=== PATIENT | male | born 1945 | race Caucasian/White ===

== ENCOUNTER 2022-04-16 18:37 | Emergency (ER) | payer OTHER, MEDICARE, SELFPAY ==
[2022-04-16 18:45] VITALS: BP 110/54; BP 143/63; PULSE 74; PULSE 80; RESP 18; TEMP 36.7; O2SAT 95; O2SAT 96; BMI 21.4
--- NOTE | 2022-04-16 18:48 | ED.NEUROSD ---
HPI - Neuro Symptoms/Deficit General Chief Complaint: Neuro Symptoms/Deficit <Michele Hernandez MD - Last Filed: 04/16/22 21:10> Stated Complaint: tremors <Michele Hernandez MD - Last Filed: 04/16/22 21:10> Time Seen by Provider: 04/16/22 18:48 <Michele Hernandez MD - Last Filed: 04/16/22 21:10> Source: patient <Michele Hernandez MD - Last Filed: 04/16/22 21:10> Mode of arrival: EMS <Michele Hernandez MD - Last Filed: 04/16/22 21:10> Limitations: no limitations <Michele Hernandez MD - Last Filed: 04/16/22 21:10> History of Present Illness HPI Narrative: patient with increased tremors over the past few weeks. Not seen by a neurologist. His paper work states that he is on primidone for tremors and has a Neurologist by the name of Dr. Dinero. <Michele Hernandez MD - Last Filed: 04/16/22 21:10> Onset (ago): month(s) <Michele Heranndez MD - Last Filed: 04/16/22 21:10> Location: other (all extremities) <Michele Hernandez MD - Last Filed: 04/16/22 21:10> Associated symptoms: denies other symptoms <Michele Hernandez MD - Last Filed: 04/16/22 21:10> Related Data Home Medications: Home Medications Medication Instructions Recorded Confirmed apixaban 5 mg tablet (Eliquis) 1 tab PO BID 04/17/22 04/17/22 atenolol 25 mg tablet 1 tab PO DAILY 04/17/22 04/17/22 atorvastatin 80 mg tablet 1 tab PO DAILY 04/17/22 04/17/22 carbidopa 25 mg-levodopa 100 mg 1 tab PO TID 04/17/22 04/17/22 tablet gabapentin 300 mg capsule 1 cap PO TID 04/17/22 04/17/22 lisinopril 2.5 mg tablet 1 tab PO DAILY 04/17/22 04/17/22 multivitamin 1 tab PO DAILY 04/17/22 04/17/22 <Michele Hernandez MD - Last Filed: 04/16/22 21:10> Allergies/Adverse Reactions: Allergies Allergy/AdvReac Type Severity Reaction Status Date / Time Penicillins [PENICILLINS] Allergy Severe SWELLING Unverified 08/04/20 19:52 <Michele Hernandez MD - Last Filed: 04/16/22 21:10> Review of Systems Constitutional: Constitutional: Reports no additional constitutional complaints <Michele Hernandez MD - Last Filed: 04/16/22 21:10> Eyes: Eyes: Reports no additional eye complaints <Michele Hernandez MD - Last Filed: 04/16/22 21:10> ENT: Denies dizziness <Michele Hernandez MD - Last Filed: 04/16/22 21:10> Cardiovascular: Cardiovascular: Reports no additional cardiovascular complaints <Michele Hernandez MD - Last Filed: 04/16/22 21:10> Respiratory: Respiratory: Reports as per HPI <Michele Hernandez MD - Last Filed: 04/16/22 21:10> Gastrointestinal: Gastrointestinal: Reports no additional gastrointestinal complaints <Michele Hernandez MD - Last Filed: 04/16/22 21:10> Musculoskeletal: Musculoskeletal: Reports no additional musculoskeletal complaints <Michele Hernandez MD - Last Filed: 04/16/22 21:10> Integumentary/Breasts: Skin/Breast: Denies rash <Michele Hernandez MD - Last Filed: 04/16/22 21:10> Neurologic: Reports system reviewed and no additional complaints, except as documented, Denies dizziness and Denies Sensory deficit (Neuro) <Michele Hernandez MD - Last Filed: 04/16/22 21:10> Psychiatric: Psychiatric: Denies anxiety <Michele Hernandez MD - Last Filed: 04/16/22 21:10> [facility] Social History Social History: Social History Advance Directives: No Advance Directives Information Provided: No <Michele Hernandez MD - Last Filed: 04/16/22 21:10> Physical Exam Vital Signs: Vital Signs: Last Vital Signs Temp 98.6 F 04/17/22 06:13 Pulse 60 04/17/22 07:31 Resp 17 04/17/22 07:31 BP 129/68 04/17/22 07:31 Pulse Ox 98 04/17/22 07:31 BMI result Body Mass Index 21.4 <Michele Hernandez MD - Last Filed: 04/16/22 21:10> Vital Signs: Last Vital Signs Temp 98.6 F 04/17/22 06:13 Pulse 60 04/17/22 07:31 Resp 17 04/17/22 07:31 BP 129/68 04/17/22 07:31 Pulse Ox 98 04/17/22 07:31 BMI result Body Mass Index 21.4 <Anette Shannon MD - Last Filed: 04/16/22 22:39> Vital Signs: Last Vital Signs Temp 98.6 F 04/17/22 06:13 Pulse 60 04/17/22 07:31 Resp 17 04/17/22 07:31 BP 129/68 04/17/22 07:31 Pulse Ox 98 04/17/22 07:31 BMI result Body Mass Index 21.4 <Adela Arreaga DO - Last Filed: 04/17/22 09:43> Const: Other: thin frail elderly male <Michele Hernandez MD - Last Filed: 04/16/22 21:10> Orientation/consciousness: oriented to person and patient oriented x3 <Michele Hernandez MD - Last Filed: 04/16/22 21:10> Limitations: no limitations <Michele Hernandez MD - Last Filed: 04/16/22 21:10> HEENT: Head: Yes normal to inspection <Michele Hernandez MD - Last Filed: 04/16/22 21:10> Ears: external ears normal <Michele Hernandez MD - Last Filed: 04/16/22 21:10> General nose exam: Normal external nose present <Michele Hernandez MD - Last Filed: 04/16/22 21:10> Mouth: Normal oral and palatal mucosa present and oropharynx normal <Michele Hernandez MD - Last Filed: 04/16/22 21:10> Throat: Yes posterior oropharynx normal <Michele Hernandez MD - Last Filed: 04/16/22 21:10> Eyes: General: appearance normal, both eyes and all related structures <Michele Hernandez MD - Last Filed: 04/16/22 21:10> Neck: Other: supple <Michele Hernandez MD - Last Filed: 04/16/22 21:10> Neck: Yes normal visual inspection <Michele Hernandez MD - Last Filed: 04/16/22 21:10> Chest: Chest palpation & inspection: normal inspection of the chest <Michele Hernandez MD - Last Filed: 04/16/22 21:10> Resp: Auscultation: clear to auscultation bilaterally <Michele Hernandez MD - Last Filed: 04/16/22 21:10> Cardio: Jugular venous distension: no JVD <Michele Hernandez MD - Last Filed: 04/16/22 21:10> Rate: regular rate <Michele Hernandez MD - Last Filed: 04/16/22 21:10> Rhythm: regular rhythm <Michele Hernandez MD - Last Filed: 04/16/22 21:10> Heart sounds: S1 normal heart sound present and S2 normal heart sound present <Michele Hernandez MD - Last Filed: 04/16/22 21:10> GI: Inspection: Yes normal to inspection <Michele Hernandez MD - Last Filed: 04/16/22 21:10> Palpation (GI): Soft to palpation, nontender and No hepatosplenomegaly present <Michele Hernandez MD - Last Filed: 04/16/22 21:10> Auscultation: normal bowel sounds <Michele Hernandez MD - Last Filed: 04/16/22 21:10> : General: Yes no CVA tenderness <Michele Hernandez MD - Last Filed: 04/16/22 21:10> Back/Spine/Pelvis: Back: no CVA tenderness <Michele Hernandez MD - Last Filed: 04/16/22 21:10> Skin: General skin exam: no rashes or lesions noted <Michele Hernandez MD - Last Filed: 04/16/22 21:10> Neuro: Other: intention tremor of hands and head <Michele Hernandez MD - Last Filed: 04/16/22 21:10> General: oriented to person and patient oriented x3 <Michele Hernandez MD - Last Filed: 04/16/22 21:10> Cranial nerves: Yes CN's II-XII intact bilaterally <Michele Hernandez MD - Last Filed: 04/16/22 21:10> Motor exam (neuro): 5/5 motor strength present throughout <Michele Hernandez MD - Last Filed: 04/16/22 21:10> Sensory Exam: No Sensory deficit (Neuro) <Michele Hernandez MD - Last Filed: 04/16/22 21:10> Extrem: General: Yes normal to inspection <Michele Hernandez MD - Last Filed: 04/16/22 21:10> Psych: Appearance: grossly normal <Michele Hernandez MD - Last Filed: 04/16/22 21:10> Course Course Course Narrative: Physician observation ended at 942am. Patient seen and cleared by PT/CM. steady gait. he is COVID + no hypoxia not toxic stable for DC at this time with VNA per PT/CM. Plan is to follow up as outpatient. VS stable. Disposition is for home. <Adela Arreaga DO - Last Filed: 04/17/22 09:43> Reevaluation(s) Reevaluation #1: patient with chronic renal insufficiency otherwise labs normal, awaiting UA, will need case management and social insurance specialist to discuss safety and needs <Michele Hernandez MD - Last Filed: 04/16/22 21:10> Time: 20:31 <Michele Hernandez MD - Last Filed: 04/16/22 21:10> Reevaluation #2: Patient placed in physician observation because the patient needed more time for evaluation by case management for possible placement. At the time observation was started the patient's vital signs were stable, patient is alert and oriented, neuro: Nonfocal, CV RRR, lungs clear <Anette Shannon MD - Last Filed: 04/16/22 22:39> Time: 22:38 <Anette Shannon MD - Last Filed: 04/16/22 22:39> MDM - Neuro Symptoms/Deficit Lab Data Result diagrams: : 04/16/22 19:12 04/16/22 19:12 <Michele Hernandez MD - Last Filed: 04/16/22 21:10> Labs: Lab Results 04/16/22 04/16/22 04/16/22 Range/Units 19:12 19:12 22:49 WBC 6.5 (4.8-10.8) X10*3/uL RBC 4.14 L (4.60-5.80) X10*6/uL Hgb 13.4 L (14.0-18.0) g/dl Hct 40.3 L (42.0-52.0) % MCV 97.3 (80.0-98.0) fL MCH 32.4 (27.0-33.0) pg MCHC 33.3 (31.0-36.0) g/dl RDW 13.0 (11.0-16.0) % Plt Count 195 (160-400) X10*3/uL MPV 9.9 (9.4-12.4) fL Immature Gran % (Auto) 0.2 (0.0-0.4) % Neut % (Auto) 59.7 (45-73) % Lymph % (Auto) 27.9 (20-40) % [place] % (Auto) 10.5 (2-11) % Eos % (Auto) 1.4 (0-4) % Baso % (Auto) 0.3 (0-2) % Lymph # (Auto) 1.8 (1.2-4.9) X10*3/uL [place] # (Auto) 0.7 (0.1-1.2) X10*3/uL Eos # (Auto) 0.1 (0.0-0.4) X10*3/uL Baso # (Auto) 0.0 (0.0-0.2) X10*3/uL Abs Immat Gran (auto) 0.01 (0.00-0.03) X10*3/uL Absolute Neuts (auto) 3.9 (2.0-8.3) x10*3/uL Absolute Nucleated RBC 0.000 (0.0-0.012) X10*3/uL Nucleated RBC % (auto) 0.0 (0.0-0.2) /100WBC Sodium 133 L (135-145) mmol/L Potassium 5.1 (3.3-5.1) mmol/L Chloride 104 (96-108) mmol/L Carbon Dioxide 20 L (22-29) mmol/L Anion Gap 14 (12-20) BUN 16 (9-16) mg/dL Creatinine 1.54 H (0.5-1.4) mg/dL Estim Creat Clear Calc 36.3 Estimated GFR 44 Random Glucose 89 (60-115) mg/dL Calcium 9.3 (8.4-10.2) mg/dL Total Bilirubin 0.5 (0.0-1.0) mg/dL AST 21 (5-37) U/L ALT 19 (0-40) U/L Alkaline Phosphatase 78 (39-117) U/L Total Protein 6.3 L (6.5-8.0) g/dL Albumin 3.8 (3.5-5.0) g/dL Urine Color YELLOW Urine Appearance CLEAR Urine pH 6.0 (5.0-8.0) Ur Specific [place] 1.020 (1.005-1.025) Urine Protein TRACE (NEG-TRACE) MG/DL Urine Glucose (UA) NEG (NEG) MG/DL Urine Ketones NEG (NEG) MG/DL Urine Blood NEG (NEG) Urine Nitrite NEG (NEG) Ur Leukocyte Esterase NEG (NEG) COVID-19 (EDITH) (Negative) COVID-19 Clin Com 04/17/22 Range/Units 02:39 WBC (4.8-10.8) X10*3/uL RBC (4.60-5.80) X10*6/uL Hgb (14.0-18.0) g/dl Hct (42.0-52.0) % MCV (80.0-98.0) fL MCH (27.0-33.0) pg MCHC (31.0-36.0) g/dl RDW (11.0-16.0) % Plt Count (160-400) X10*3/uL MPV (9.4-12.4) fL Immature Gran % (Auto) (0.0-0.4) % Neut % (Auto) (45-73) % Lymph % (Auto) (20-40) % [place] % (Auto) (2-11) % Eos % (Auto) (0-4) % Baso % (Auto) (0-2) % Lymph # (Auto) (1.2-4.9) X10*3/uL [place] # (Auto) (0.1-1.2) X10*3/uL Eos # (Auto) (0.0-0.4) X10*3/uL Baso # (Auto) (0.0-0.2) X10*3/uL Abs Immat Gran (auto) (0.00-0.03) X10*3/uL Absolute Neuts (auto) (2.0-8.3) x10*3/uL Absolute Nucleated RBC (0.0-0.012) X10*3/uL Nucleated RBC % (auto) (0.0-0.2) /100WBC Sodium (135-145) mmol/L Potassium (3.3-5.1) mmol/L Chloride (96-108) mmol/L Carbon Dioxide (22-29) mmol/L Anion Gap (12-20) BUN (9-16) mg/dL Creatinine (0.5-1.4) mg/dL Estim Creat Clear Calc Estimated GFR Random Glucose (60-115) mg/dL Calcium (8.4-10.2) mg/dL Total Bilirubin (0.0-1.0) mg/dL AST (5-37) U/L ALT (0-40) U/L Alkaline Phosphatase (39-117) U/L Total Protein (6.5-8.0) g/dL Albumin (3.5-5.0) g/dL Urine Color Urine Appearance Urine pH (5.0-8.0) Ur Specific [place] (1.005-1.025) Urine Protein (NEG-TRACE) MG/DL Urine Glucose (UA) (NEG) MG/DL Urine Ketones (NEG) MG/DL Urine Blood (NEG) Urine Nitrite (NEG) Ur Leukocyte Esterase (NEG) COVID-19 (EDITH) Positive A (Negative) COVID-19 Clin Com See Note <Michele Hernandez MD - Last Filed: 04/16/22 21:10> Lab Results 04/16/22 04/16/22 04/16/22 Range/Units 19:12 19:12 22:49 WBC 6.5 (4.8-10.8) X10*3/uL RBC 4.14 L (4.60-5.80) X10*6/uL Hgb 13.4 L (14.0-18.0) g/dl Hct 40.3 L (42.0-52.0) % MCV 97.3 (80.0-98.0) fL MCH 32.4 (27.0-33.0) pg MCHC 33.3 (31.0-36.0) g/dl RDW 13.0 (11.0-16.0) % Plt Count 195 (160-400) X10*3/uL MPV 9.9 (9.4-12.4) fL Immature Gran % (Auto) 0.2 (0.0-0.4) % Neut % (Auto) 59.7 (45-73) % Lymph % (Auto) 27.9 (20-40) % [place] % (Auto) 10.5 (2-11) % Eos % (Auto) 1.4 (0-4) % Baso % (Auto) 0.3 (0-2) % Lymph # (Auto) 1.8 (1.2-4.9) X10*3/uL [place] # (Auto) 0.7 (0.1-1.2) X10*3/uL Eos # (Auto) 0.1 (0.0-0.4) X10*3/uL Baso # (Auto) 0.0 (0.0-0.2) X10*3/uL Abs Immat Gran (auto) 0.01 (0.00-0.03) X10*3/uL Absolute Neuts (auto) 3.9 (2.0-8.3) x10*3/uL Absolute Nucleated RBC 0.000 (0.0-0.012) X10*3/uL Nucleated RBC % (auto) 0.0 (0.0-0.2) /100WBC Sodium 133 L (135-145) mmol/L Potassium 5.1 (3.3-5.1) mmol/L Chloride 104 (96-108) mmol/L Carbon Dioxide 20 L (22-29) mmol/L Anion Gap 14 (12-20) BUN 16 (9-16) mg/dL Creatinine 1.54 H (0.5-1.4) mg/dL Estim Creat Clear Calc 36.3 Estimated GFR 44 Random Glucose 89 (60-115) mg/dL Calcium 9.3 (8.4-10.2) mg/dL Total Bilirubin 0.5 (0.0-1.0) mg/dL AST 21 (5-37) U/L ALT 19 (0-40) U/L Alkaline Phosphatase 78 (39-117) U/L Total Protein 6.3 L (6.5-8.0) g/dL Albumin 3.8 (3.5-5.0) g/dL Urine Color YELLOW Urine Appearance CLEAR Urine pH 6.0 (5.0-8.0) Ur Specific [place] 1.020 (1.005-1.025) Urine Protein TRACE (NEG-TRACE) MG/DL Urine Glucose (UA) NEG (NEG) MG/DL Urine Ketones NEG (NEG) MG/DL Urine Blood NEG (NEG) Urine Nitrite NEG (NEG) Ur Leukocyte Esterase NEG (NEG) COVID-19 (EDITH) (Negative) COVID-19 Clin Com 04/17/22 Range/Units 02:39 WBC (4.8-10.8) X10*3/uL RBC (4.60-5.80) X10*6/uL Hgb (14.0-18.0) g/dl Hct (42.0-52.0) % MCV (80.0-98.0) fL MCH (27.0-33.0) pg MCHC (31.0-36.0) g/dl RDW (11.0-16.0) % Plt Count (160-400) X10*3/uL MPV (9.4-12.4) fL Immature Gran % (Auto) (0.0-0.4) % Neut % (Auto) (45-73) % Lymph % (Auto) (20-40) % [place] % (Auto) (2-11) % Eos % (Auto) (0-4) % Baso % (Auto) (0-2) % Lymph # (Auto) (1.2-4.9) X10*3/uL [place] # (Auto) (0.1-1.2) X10*3/uL Eos # (Auto) (0.0-0.4) X10*3/uL Baso # (Auto) (0.0-0.2) X10*3/uL Abs Immat Gran (auto) (0.00-0.03) X10*3/uL Absolute Neuts (auto) (2.0-8.3) x10*3/uL Absolute Nucleated RBC (0.0-0.012) X10*3/uL Nucleated RBC % (auto) (0.0-0.2) /100WBC Sodium (135-145) mmol/L Potassium (3.3-5.1) mmol/L Chloride (96-108) mmol/L Carbon Dioxide (22-29) mmol/L Anion Gap (12-20) BUN (9-16) mg/dL Creatinine (0.5-1.4) mg/dL Estim Creat Clear Calc Estimated GFR Random Glucose (60-115) mg/dL Calcium (8.4-10.2) mg/dL Total Bilirubin (0.0-1.0) mg/dL AST (5-37) U/L ALT (0-40) U/L Alkaline Phosphatase (39-117) U/L Total Protein (6.5-8.0) g/dL Albumin (3.5-5.0) g/dL Urine Color Urine Appearance Urine pH (5.0-8.0) Ur Specific [place] (1.005-1.025) Urine Protein (NEG-TRACE) MG/DL Urine Glucose (UA) (NEG) MG/DL Urine Ketones (NEG) MG/DL Urine Blood (NEG) Urine Nitrite (NEG) Ur Leukocyte Esterase (NEG) COVID-19 (EDITH) Positive A (Negative) COVID-19 Clin Com See Note <Anette Shannon MD - Last Filed: 04/16/22 22:39> Lab Results 04/16/22 04/16/22 04/16/22 Range/Units 19:12 19:12 22:49 WBC 6.5 (4.8-10.8) X10*3/uL RBC 4.14 L (4.60-5.80) X10*6/uL Hgb 13.4 L (14.0-18.0) g/dl Hct 40.3 L (42.0-52.0) % MCV 97.3 (80.0-98.0) fL MCH 32.4 (27.0-33.0) pg MCHC 33.3 (31.0-36.0) g/dl RDW 13.0 (11.0-16.0) % Plt Count 195 (160-400) X10*3/uL MPV 9.9 (9.4-12.4) fL Immature Gran % (Auto) 0.2 (0.0-0.4) % Neut % (Auto) 59.7 (45-73) % Lymph % (Auto) 27.9 (20-40) % [place] % (Auto) 10.5 (2-11) % Eos % (Auto) 1.4 (0-4) % Baso % (Auto) 0.3 (0-2) % Lymph # (Auto) 1.8 (1.2-4.9) X10*3/uL [place] # (Auto) 0.7 (0.1-1.2) X10*3/uL Eos # (Auto) 0.1 (0.0-0.4) X10*3/uL Baso # (Auto) 0.0 (0.0-0.2) X10*3/uL Abs Immat Gran (auto) 0.01 (0.00-0.03) X10*3/uL Absolute Neuts (auto) 3.9 (2.0-8.3) x10*3/uL Absolute Nucleated RBC 0.000 (0.0-0.012) X10*3/uL Nucleated RBC % (auto) 0.0 (0.0-0.2) /100WBC Sodium 133 L (135-145) mmol/L Potassium 5.1 (3.3-5.1) mmol/L Chloride 104 (96-108) mmol/L Carbon Dioxide 20 L (22-29) mmol/L Anion Gap 14 (12-20) BUN 16 (9-16) mg/dL Creatinine 1.54 H (0.5-1.4) mg/dL Estim Creat Clear Calc 36.3 Estimated GFR 44 Random Glucose 89 (60-115) mg/dL Calcium 9.3 (8.4-10.2) mg/dL Total Bilirubin 0.5 (0.0-1.0) mg/dL AST 21 (5-37) U/L ALT 19 (0-40) U/L Alkaline Phosphatase 78 (39-117) U/L Total Protein 6.3 L (6.5-8.0) g/dL Albumin 3.8 (3.5-5.0) g/dL Urine Color YELLOW Urine Appearance CLEAR Urine pH 6.0 (5.0-8.0) Ur Specific [place] 1.020 (1.005-1.025) Urine Protein TRACE (NEG-TRACE) MG/DL Urine Glucose (UA) NEG (NEG) MG/DL Urine Ketones NEG (NEG) MG/DL Urine Blood NEG (NEG) Urine Nitrite NEG (NEG) Ur Leukocyte Esterase NEG (NEG) COVID-19 (EDITH) (Negative) COVID-19 Clin Com 04/17/22 Range/Units 02:39 WBC (4.8-10.8) X10*3/uL RBC (4.60-5.80) X10*6/uL Hgb (14.0-18.0) g/dl Hct (42.0-52.0) % MCV (80.0-98.0) fL MCH (27.0-33.0) pg MCHC (31.0-36.0) g/dl RDW (11.0-16.0) % Plt Count (160-400) X10*3/uL MPV (9.4-12.4) fL Immature Gran % (Auto) (0.0-0.4) % Neut % (Auto) (45-73) % Lymph % (Auto) (20-40) % [place] % (Auto) (2-11) % Eos % (Auto) (0-4) % Baso % (Auto) (0-2) % Lymph # (Auto) (1.2-4.9) X10*3/uL [place] # (Auto) (0.1-1.2) X10*3/uL Eos # (Auto) (0.0-0.4) X10*3/uL Baso # (Auto) (0.0-0.2) X10*3/uL Abs Immat Gran (auto) (0.00-0.03) X10*3/uL Absolute Neuts (auto) (2.0-8.3) x10*3/uL Absolute Nucleated RBC (0.0-0.012) X10*3/uL Nucleated RBC % (auto) (0.0-0.2) /100WBC Sodium (135-145) mmol/L Potassium (3.3-5.1) mmol/L Chloride (96-108) mmol/L Carbon Dioxide (22-29) mmol/L Anion Gap (12-20) BUN (9-16) mg/dL Creatinine (0.5-1.4) mg/dL Estim Creat Clear Calc Estimated GFR Random Glucose (60-115) mg/dL Calcium (8.4-10.2) mg/dL Total Bilirubin (0.0-1.0) mg/dL AST (5-37) U/L ALT (0-40) U/L Alkaline Phosphatase (39-117) U/L Total Protein (6.5-8.0) g/dL Albumin (3.5-5.0) g/dL Urine Color Urine Appearance Urine pH (5.0-8.0) Ur Specific [place] (1.005-1.025) Urine Protein (NEG-TRACE) MG/DL Urine Glucose (UA) (NEG) MG/DL Urine Ketones (NEG) MG/DL Urine Blood (NEG) Urine Nitrite (NEG) Ur Leukocyte Esterase (NEG) COVID-19 (EDITH) Positive A (Negative) COVID-19 Clin Com See Note <Adela Arreaga DO - Last Filed: 04/17/22 09:43> Discharge Plan Discharge Clinical Impression: Tremor, COVID-19 <Michele Hernandez MD - Last Filed: 04/16/22 21:10> Patient Disposition: Home, Self-Care <Michele Hernandez MD - Last Filed: 04/16/22 21:10> Instructions: Tremors (ED), COVID-19 (Coronavirus Disease 2019) (ED) <Michele Hernandez MD - Last Filed: 04/16/22 21:10> Additional Instructions: return to ED for any worsening symptoms or concerns positive for COVID if you become so short of breath you cannot walk to your bathroom seek medical care follow up with your doctor and neurologist in regards to your tremor in the next week <Michele Hernandez MD - Last Filed: 04/16/22 21:10> Prescriptions: No Action multivitamin Tablet 1 tab PO DAILY 0RF atorvastatin 80 mg tablet 1 tab PO DAILY 0RF atenolol 25 mg tablet 1 tab PO DAILY 0RF gabapentin 300 mg capsule 1 cap PO TID 0RF carbidopa-levodopa 25-100 mg tablet 1 tab PO TID 0RF lisinopril 2.5 mg tablet 1 tab PO DAILY 0RF Eliquis 5 mg tablet 1 tab PO BID 0RF <Michele Hernandez MD - Last Filed: 04/16/22 21:10> Referrals: [facility] [Outside] (Agency will call you to arrange a visit. ) <Michele Hernandez MD - Last Filed: 04/16/22 21:10>
[2022-04-16 19:16] LABS: MANUAL DIFF FLAG NO
[2022-04-16 19:17] LABS: Basophils Percent Auto 0.3 % (0-2); Eosinophils Absolute Auto 0.1 X10*3/uL (0.0-0.4); Eosinophils Percent Auto 1.4 % (0-4); Hematocrit 40.3 % (42.0-52.0); Hemoglobin 13.4 g/dl (14.0-18.0); Imm Gran Abs Auto 0.01 X10*3/uL (0.00-0.03); Imm Gran Pct Auto 0.2 % (0.0-0.4); Lymphocytes Absolute Auto 1.8 X10*3/uL (1.2-4.9); Lymphocytes Percent Auto 27.9 % (20-40); Mean Corpuscular HGB Conc 33.3 g/dl (31.0-36.0); Mean Corpuscular Hemoglobin 32.4 pg (27.0-33.0); Mean Corpuscular Volume 97.3 fL (80.0-98.0); Mean Platelet Volume 9.9 fL (9.4-12.4); Monocytes Absolute Auto 0.7 X10*3/uL (0.1-1.2); Monocytes Percent Auto 10.5 % (2-11); Neutrophils Absolute Auto 3.9 x10*3/uL (2.0-8.3); Neutrophils Percent Auto 59.7 % (45-73); Platelet Count 195 X10*3/uL (160-400); Red Blood Count 4.14 X10*6/uL (4.60-5.80); White Blood Count 6.5 X10*3/uL (4.8-10.8)
[2022-04-16 19:36] LABS: Alanine Aminotransferase 19 U/L (0-40); Albumin Level 3.8 g/dL (3.5-5.0); Alkaline Phosphatase 78 U/L (39-117); Anion Gap 14 (12-20); Aspartate Amino Transferase 21 U/L (5-37); Bilirubin Total 0.5 mg/dL (0.0-1.0); Blood Urea Nitrogen 16 mg/dL (9-16); Calcium 9.3 mg/dL (8.4-10.2); Carbon Dioxide 20 mmol/L (22-29); Chloride 104 mmol/L (96-108); Creatinine Clr Calc Pharmacy 36.3; Estimated Glomerular Filt Rate 44; Glucose Random 89 mg/dL (60-115); Potassium 5.1 mmol/L (3.3-5.1); Sodium 133 mmol/L (135-145); Total Protein 6.3 g/dL (6.5-8.0)
[2022-04-16 21:57] VITALS: BP 143/63; PULSE 74; RESP 16; TEMP 36.7; O2SAT 95
[2022-04-16 23:02] LABS: Appearance Urine CLEAR; Color Urine YELLOW; Glucose Urine UA NEG (NEG); Leukocyte Esterase Urine NEG (NEG); Nitrite Urine NEG (NEG); Urine Blood NEG (NEG); Urine Ketones NEG (NEG); Urine Protein TRACE MG/DL (NEG-TRACE)
[2022-04-17] VITALS: BP 149/63; PULSE 54; RESP 16; TEMP 36.9; O2SAT 98
[2022-04-17 02:00] VITALS: BP 143/49; PULSE 48; RESP 16; TEMP 36.7; O2SAT 99
--- NOTE | 2022-04-17 02:43 | PC.NURSE ---
Patient is alert and oriented x3, he is able to make his needs known-patient denies pain/discomfort at present. BP 144/72, P 47-Dr. Shannon updated on BP and pulse readings-no new orders at this time.
[2022-04-17 02:53] LABS: COVID-19 Test Positive (Negative); IDNOW Serial# 16C4AD1C
--- NOTE | 2022-04-17 04:35 | PC.NURSE ---
Patient refused being straight cath-patient was able to void into urinal-urine specimen obtained, scanned, and sent to lab for processing.
--- NOTE | 2022-04-17 04:39 | PC.NURSE ---
Patient had a small BM-soft, brown stool.
[2022-04-17 06:13] VITALS: BP 157/65; PULSE 51; RESP 18; TEMP 37; O2SAT 97
[2022-04-17 07:29] VITALS: BP 129/68; PULSE 60; O2SAT 98
[2022-04-17 07:31] VITALS: BP 129/68; PULSE 60; RESP 17; O2SAT 98
--- NOTE | 2022-04-17 09:31 | MHC.CM.ED ---
Addendum entered by Angélica Christy 04/17/22 10:03: No HCP at [place] for this patient. Original Note: Received case management consult overnight. Patient came to the ER due to tremors. Work up essentially negative. Patient was found to be positive for Covid. Patient has a history of Parkinson's disease and sees a neurologist. Physical therapy eval completed. No therapies recommended at this time. Met with patient in regards to discharge planning. Patient lives with a roommate, uses a cane for mobility and had no services prior to coming to the ER. PCP verified. Patient received 3 Moderna vaccines. Patient would like VNA to be arranged and is agreeable to referral to [facility]. Referral made via [employer]. Patient has no transportation home. Due to being positive for Covid, BLS booked. [facility] with chart. Patient, Josesito CARBAJAL and Dr Arreaga aware. Continue to monitor for d/c needs.
== END 2022-04-17 10:07 | disposition home or self-care (01) ==
PROVIDERS: Emergency Provider Emergency Medicine; PCP Internal Medicine
DX: U07.1 COVID-19 (principal); R25.1 Tremor, unspecified; Z79.899 Other long term (current) drug therapy
CPT/HCPCS: 36415; 80053; 81003; 85025; 87635; 97162; 99284

== ENCOUNTER 2022-06-25 20:57 | Emergency (ER) | payer OTHER, SELFPAY ==
--- NOTE | ~2022-06-25 | CT_ITS ---
EXAMINATION: CT HEAD WITHOUT CONTRAST CLINICAL INFORMATION: Confusion COMPARISON: None TECHNIQUE: Imaging was performed from the skull base to vertex without intravenous administration of contrast. This CT examination was performed using dose optimization techniques as appropriate, variously including the following: *Automated exposure control *Adjustment of mA and/or kV according to patient size (this includes techniques or standardized protocols for targeted exams where dose is matched to indication/reason for exam; i.e. extremities or head) *Use of iterative reconstruction technique Total exam dose length product: 594 mGy-cm FINDINGS: No intra or extra-axial fluid collection, hemorrhage, or mass. No ventriculomegaly. No midline shift or herniation. Basal cisterns are patent. Cherry-white matter differentiation is maintained. No territorial encephalomalacia. Proportional prominence of the ventricles and sulcal spaces is consistent with mild volume loss. Confluent periventricular and deep white matter hypoattenuation is consistent with severe small vessel ischemic changes. No calvarial fracture or soft tissue abnormality. Mild mucosal thickening and hyperostosis of the sphenoid and visualized left maxillary sinuses. Mastoid air cells are normally aerated. CT/CT head/brain wo con IMPRESSION: 1. No acute intracranial pathology. 2. Mild cerebral atrophy and extensive confluent supratentorial white matter hypoattenuation, nonspecific though presumably secondary to chronic small vessel ischemia.
--- NOTE | ~2022-06-25 | XR_ITS ---
EXAMINATION: XR CHEST CLINICAL INFORMATION: Confusion COMPARISON: None TECHNIQUE: Frontal view of the chest was obtained. FINDINGS: Heart size normal. Patient status post median sternotomy with some fractured sternal sutures. There is no evidence of CHF. No infiltrates or effusions are seen. Chronic left shoulder fracture with nonunion. Surgical clips noted near the GE junction. XR/XR chest 1V IMPRESSION: No acute intrathoracic disease.
[2022-06-25 21:12] VITALS: BP 144/68; PULSE 50; O2SAT 98
--- NOTE | 2022-06-25 21:14 | PC.NURSE ---
Joseph (neighbor) [phone] able to transport pt home if called for discharge.
[2022-06-25 21:23] VITALS: BP 137/74; PULSE 44; RESP 16; TEMP 37.2; O2SAT 94; BMI 23.8
--- NOTE | 2022-06-25 21:27 | ECG_ITS ---
Test Reason : cp Blood Pressure : / mmHG Vent. Rate : 042 BPM Atrial Rate : 042 BPM P-R Int : 182 ms QRS Dur : 078 ms QT Int : 454 ms P-R-T Axes : 014 053 057 degrees QTc Int : 379 ms Marked sinus bradycardia Abnormal ECG No previous ECGs available Referred By: Adela Arreaga Electronically Signed By:SALMA KABA
--- NOTE | 2022-06-25 21:33 | ED.AMS ---
HPI - Altered Mental Status General Chief Complaint: Altered Mental Status Stated Complaint: confusion and not eating Time Seen by Provider: 06/25/22 21:23 Source: patient Mode of arrival: EMS Limitations: no limitations History of Present Illness HPI narrative: 77 yo male with hx of HTN, CAD s/p CABG comes from home stating he is disoriented but he can answer all questions in regards to orientation. He states he doesn't have fever, didn't fall, he hasn't had any issues such as coughing/problems urinating. He just feels off. No ETOH and recent changes in medications. He states a friend told him to come get checked out. He notes this has been happening all day MD complaint: confusion Onset (ago): day(s) (since this AM when he woke up) Timing confirmed by: other ( neighbor friend ) Severity: mild Consistency of symptoms: unknown Associated symptoms: denies other symptoms Related Data Allergies Allergy/AdvReac Type Severity Reaction Status Date / Time Penicillins Allergy Unknown Unknown Verified 06/25/22 21:24 Review of Systems Review of Systems: Constitutional : No Fever, No Chills, pos Fatigue, No Malaise ENT/Mouth : No sore throat, No Rhinorrhea Eyes: No Eye Pain, No Swelling, No Redness Cardiovascular : No Chest Pain, No SOB, No Dyspnea on Exertion, No Orthopnea, No Edema, No Palpitations Respiratory : No Cough, No Sputum, No Wheezing Gastrointestinal : No Nausea, No Vomiting, No Diarrhea, No Constipation, No abdominal Pain, No Hematochezia, No Melena Genitourinary : No Dysuria, No Urinary Frequency, No Hematuria, Musculoskeletal : No joint pain, No Myalgias, No Joint Swelling Skin : No Skin Lesions, No rash Neuro : No Weakness, No Numbness, No Dizziness, No Headache, pos confusion Psych : No Anxiety/Panic, No Depression Heme/Lymph: No Bruising, No Bleeding,No Lymphadenopathy Endocrine : No Polyuria, No Polydipsia All other systems reviewed and are negative [facility] Past Medical History Attestation statement: The following information was validated with the patient. Medical History (Updated 06/26/22 @ 01:20 by Adela Arreaga DO) Coronary artery disease HTN (hypertension) Surgical History (Updated 06/25/22 @ 21:33 by Adela Arreaga DO) Hx of CABG Social History Social History (Updated 06/25/22 @ 21:34 by Adela Arreaga DO) Alcohol intake: never Patient Tobacco Use Status: Current someday Tobacco user Tobacco use type: Cigar Advance Directives: No Advance Directives Information Provided: No Physical Exam ED Vital Signs: Vital Signs - 24 hr 06/25/22 21:23 06/25/22 23:41 Temperature 99 F 98.4 F Pulse Rate 44 L 450 H Respiratory Rate 16 20 Blood Pressure 137/74 174/60 H Pulse Oximetry 94 100 Oxygen Delivery Method Room Air Room Air BMI result Body Mass Index 23.8 Appearance: Alert. Oriented X3. No acute distress. Eyes: Pupils equal, round and reactive to light. ENT: Pharynx normal. Neck: Normal inspection. Neck supple. CVS: Normal heart rate and rhythm. Pulses normal. Chest wall: old sternotomy scar Respiratory: No respiratory distress. Breath sounds normal. Abdomen: Soft and non-tender. Skin: Skin warm and dry. Normal skin color. Normal skin turgor. Extremities: No lower extremity edema. No calf ttp Neuro: Oriented X 3. No motor deficit. No sensory deficit. Course Course Course Narrative: negative workup no signs of infection, after much discussion patient now notes he is stressed out and anxious he is alone recently as his roommate went ot stay with her boyfriend. He is not confused. At this time plan to DC home in AM patient states he is taking his medications, he feels safe for DC and doesn't want placement MDM - Altered Mental Status MDM Narrative Medical decision making narrative: 77 yo male with hx of HTN, CAD s/p CABG from home with c/o confusion though he is oriented and comes in without falls and fevers. At this time will need labs, EKG, CXR, UA for infection. CT head for ICH though no localizing symptoms. Dispo per results and findings. He is not alerted on arrival at this time. Lab Data Result diagrams: 06/25/22 22:32 06/25/22 22:32 Labs: Lab Results 06/25/22 06/25/22 06/25/22 Range/Units 22:32 22:32 22:32 WBC 7.1 (4.8-10.8) X10*3/uL RBC 3.49 L (4.60-5.80) X10*6/uL Hgb 11.5 L (14.0-18.0) g/dl Hct 34.3 L (42.0-52.0) % MCV 98.3 H (80.0-98.0) fL MCH 33.0 (27.0-33.0) pg MCHC 33.5 (31.0-36.0) g/dl RDW 13.4 (11.0-16.0) % Plt Count 148 L (160-400) X10*3/uL MPV 9.7 (9.4-12.4) fL Immature Gran % (Auto) 0.3 (0.0-0.4) % Neut % (Auto) 63.8 (45-73) % Lymph % (Auto) 24.6 (20-40) % [place] % (Auto) 9.3 (2-11) % Eos % (Auto) 1.7 (0-4) % Baso % (Auto) 0.3 (0-2) % Lymph # (Auto) 1.7 (1.2-4.9) X10*3/uL [place] # (Auto) 0.7 (0.1-1.2) X10*3/uL Eos # (Auto) 0.1 (0.0-0.4) X10*3/uL Baso # (Auto) 0.0 (0.0-0.2) X10*3/uL Abs Immat Gran (auto) 0.02 (0.00-0.03) X10*3/uL Absolute Neuts (auto) 4.5 (2.0-8.3) x10*3/uL Absolute Nucleated RBC 0.000 (0.0-0.012) X10*3/uL Nucleated RBC % (auto) 0.0 (0.0-0.2) /100WBC VBG pH (7.32-7.43) VBG pCO2 mmHg VBG pO2 mmHg VBG HCO3 (22-26) mmol/L VBG O2 Saturation % VBG Base Excess mmol/L Sodium 131 L (135-145) mmol/L Potassium 5.4 H (3.3-5.1) mmol/L Chloride 98 (96-108) mmol/L Carbon Dioxide 27 (22-29) mmol/L Anion Gap 11 L (12-20) BUN 15 (9-16) mg/dL Creatinine 1.41 H (0.5-1.4) mg/dL Estim Creat Clear Calc 41.7 Estimated GFR 49 Random Glucose 99 (60-115) mg/dL Lactic Acid 0.5 (0.5-2.0) mmol/L Calcium 8.4 (8.4-10.2) mg/dL Magnesium 2.1 (1.6-2.6) mg/dL Total Bilirubin 0.7 (0.0-1.0) mg/dL Direct Bilirubin 0.3 (0.0-0.5) mg/dL AST 23 (5-37) U/L ALT < 6 (0-40) U/L Alkaline Phosphatase 69 (39-117) U/L Ammonia (13-55) umol/L Troponin I High Sens (<3.5-35.0) ng/L Total Protein 5.6 L (6.5-8.0) g/dL Albumin 3.6 (3.5-5.0) g/dL Lipase 42 (8-78) U/L Urine Color Urine Appearance Urine pH (5.0-8.0) Ur Specific [place] (1.005-1.025) Urine Protein (NEG-TRACE) MG/DL Urine Glucose (UA) (NEG) MG/DL Urine Ketones (NEG) MG/DL Urine Blood (NEG) Urine Nitrite (NEG) Ur Leukocyte Esterase (NEG) Ethyl Alcohol mg/dL COVID-19 ([facility]) (Negative) COVID-19 Clin Com 06/25/22 06/25/22 06/25/22 Range/Units 22:32 22:32 22:32 WBC (4.8-10.8) X10*3/uL RBC (4.60-5.80) X10*6/uL Hgb (14.0-18.0) g/dl Hct (42.0-52.0) % MCV (80.0-98.0) fL MCH (27.0-33.0) pg MCHC (31.0-36.0) g/dl RDW (11.0-16.0) % Plt Count (160-400) X10*3/uL MPV (9.4-12.4) fL Immature Gran % (Auto) (0.0-0.4) % Neut % (Auto) (45-73) % Lymph % (Auto) (20-40) % [place] % (Auto) (2-11) % Eos % (Auto) (0-4) % Baso % (Auto) (0-2) % Lymph # (Auto) (1.2-4.9) X10*3/uL [place] # (Auto) (0.1-1.2) X10*3/uL Eos # (Auto) (0.0-0.4) X10*3/uL Baso # (Auto) (0.0-0.2) X10*3/uL Abs Immat Gran (auto) (0.00-0.03) X10*3/uL Absolute Neuts (auto) (2.0-8.3) x10*3/uL Absolute Nucleated RBC (0.0-0.012) X10*3/uL Nucleated RBC % (auto) (0.0-0.2) /100WBC VBG pH (7.32-7.43) VBG pCO2 mmHg VBG pO2 mmHg VBG HCO3 (22-26) mmol/L VBG O2 Saturation % VBG Base Excess mmol/L Sodium (135-145) mmol/L Potassium (3.3-5.1) mmol/L Chloride (96-108) mmol/L Carbon Dioxide (22-29) mmol/L Anion Gap (12-20) BUN (9-16) mg/dL Creatinine (0.5-1.4) mg/dL Estim Creat Clear Calc Estimated GFR Random Glucose (60-115) mg/dL Lactic Acid (0.5-2.0) mmol/L Calcium (8.4-10.2) mg/dL Magnesium (1.6-2.6) mg/dL Total Bilirubin (0.0-1.0) mg/dL Direct Bilirubin (0.0-0.5) mg/dL AST (5-37) U/L ALT (0-40) U/L Alkaline Phosphatase (39-117) U/L Ammonia 24 (13-55) umol/L Troponin I High Sens 5.7 (<3.5-35.0) ng/L Total Protein (6.5-8.0) g/dL Albumin (3.5-5.0) g/dL Lipase (8-78) U/L Urine Color Urine Appearance Urine pH (5.0-8.0) Ur Specific [place] (1.005-1.025) Urine Protein (NEG-TRACE) MG/DL Urine Glucose (UA) (NEG) MG/DL Urine Ketones (NEG) MG/DL Urine Blood (NEG) Urine Nitrite (NEG) Ur Leukocyte Esterase (NEG) Ethyl Alcohol mg/dL COVID-19 ([facility]) Negative (Negative) COVID-19 Clin Com See Note 06/25/22 06/25/22 06/26/22 Range/Units 22:32 22:35 00:56 WBC (4.8-10.8) X10*3/uL RBC (4.60-5.80) X10*6/uL Hgb (14.0-18.0) g/dl Hct (42.0-52.0) % MCV (80.0-98.0) fL MCH (27.0-33.0) pg MCHC (31.0-36.0) g/dl RDW (11.0-16.0) % Plt Count (160-400) X10*3/uL MPV (9.4-12.4) fL Immature Gran % (Auto) (0.0-0.4) % Neut % (Auto) (45-73) % Lymph % (Auto) (20-40) % [place] % (Auto) (2-11) % Eos % (Auto) (0-4) % Baso % (Auto) (0-2) % Lymph # (Auto) (1.2-4.9) X10*3/uL [place] # (Auto) (0.1-1.2) X10*3/uL Eos # (Auto) (0.0-0.4) X10*3/uL Baso # (Auto) (0.0-0.2) X10*3/uL Abs Immat Gran (auto) (0.00-0.03) X10*3/uL Absolute Neuts (auto) (2.0-8.3) x10*3/uL Absolute Nucleated RBC (0.0-0.012) X10*3/uL Nucleated RBC % (auto) (0.0-0.2) /100WBC VBG pH 7.40 (7.32-7.43) VBG pCO2 37 mmHg VBG pO2 123 mmHg VBG HCO3 23 (22-26) mmol/L VBG O2 Saturation 99.0 % VBG Base Excess -0.5 mmol/L Sodium (135-145) mmol/L Potassium (3.3-5.1) mmol/L Chloride (96-108) mmol/L Carbon Dioxide (22-29) mmol/L Anion Gap (12-20) BUN (9-16) mg/dL Creatinine (0.5-1.4) mg/dL Estim Creat Clear Calc Estimated GFR Random Glucose (60-115) mg/dL Lactic Acid (0.5-2.0) mmol/L Calcium (8.4-10.2) mg/dL Magnesium (1.6-2.6) mg/dL Total Bilirubin (0.0-1.0) mg/dL Direct Bilirubin (0.0-0.5) mg/dL AST (5-37) U/L ALT (0-40) U/L Alkaline Phosphatase (39-117) U/L Ammonia (13-55) umol/L Troponin I High Sens (<3.5-35.0) ng/L Total Protein (6.5-8.0) g/dL Albumin (3.5-5.0) g/dL Lipase (8-78) U/L Urine Color YELLOW Urine Appearance CLEAR Urine pH 7.0 (5.0-8.0) Ur Specific [place] 1.010 (1.005-1.025) Urine Protein NEG (NEG-TRACE) MG/DL Urine Glucose (UA) NEG (NEG) MG/DL Urine Ketones NEG (NEG) MG/DL Urine Blood NEG (NEG) Urine Nitrite NEG (NEG) Ur Leukocyte Esterase NEG (NEG) Ethyl Alcohol < 10 mg/dL COVID-19 ([facility]) (Negative) COVID-19 Clin Com ECG Data ECG #1: Attestation: I personally reviewed and interpreted this ECG as follows: ECG interpretation date: 06/25/22 ECG interpretation time: 21:45 Interpretation: Rate: 42 Rhythm: sinus bradycardia Straughn: normal Normal P waves. Normal ARISTIDES. Normal QRS complex. ST T wave : normal no STEa qTC: normal prior studies: none The study has been interpreted contemporaneously by me. . Discharge Plan Discharge Clinical Impression: Anxiety Patient Disposition: Home, Self-Care Instructions: Anxiety (ED) Additional Instructions: return to ED for any worsening symptoms or concerns negative labs, urine, chest xray, CT head please follow up with your doctor this week.
[2022-06-25 22:38] LABS: MANUAL DIFF FLAG NO
[2022-06-25 22:38] LABS: Venous Blood Gas Refer to POC result
[2022-06-25 22:40] LABS: VBG Base Excess -0.5 mmol/L; VBG HCO3 23 mmol/L (22-26); VBG pCO2 37 mmHg; VBG pO2 123 mmHg
[2022-06-25 22:42] LABS: Basophils Percent Auto 0.3 % (0-2); Eosinophils Absolute Auto 0.1 X10*3/uL (0.0-0.4); Eosinophils Percent Auto 1.7 % (0-4); Hematocrit 34.3 % (42.0-52.0); Hemoglobin 11.5 g/dl (14.0-18.0); Imm Gran Abs Auto 0.02 X10*3/uL (0.00-0.03); Imm Gran Pct Auto 0.3 % (0.0-0.4); Lymphocytes Absolute Auto 1.7 X10*3/uL (1.2-4.9); Lymphocytes Percent Auto 24.6 % (20-40); Mean Corpuscular HGB Conc 33.5 g/dl (31.0-36.0); Mean Corpuscular Volume 98.3 fL (80.0-98.0); Mean Platelet Volume 9.7 fL (9.4-12.4); Monocytes Absolute Auto 0.7 X10*3/uL (0.1-1.2); Monocytes Percent Auto 9.3 % (2-11); Neutrophils Absolute Auto 4.5 x10*3/uL (2.0-8.3); Neutrophils Percent Auto 63.8 % (45-73); Platelet Count 148 X10*3/uL (160-400); Red Blood Count 3.49 X10*6/uL (4.60-5.80); Red Cell Distribution Width 13.4 % (11.0-16.0); White Blood Count 7.1 X10*3/uL (4.8-10.8)
[2022-06-25 22:52] LABS: Lactic Acid 0.5 mmol/L (0.5-2.0)
[2022-06-25 22:54] LABS: COVID-19 Test Negative (Negative)
[2022-06-25 22:55] LABS: Ethanol < 10 mg/dL
[2022-06-25 23:00] LABS: Alanine Aminotransferase < 6 U/L (0-40); Albumin Level 3.6 g/dL (3.5-5.0); Alkaline Phosphatase 69 U/L (39-117); Anion Gap 11 (12-20); Aspartate Amino Transferase 23 U/L (5-37); Bilirubin Direct 0.3 mg/dL (0.0-0.5); Bilirubin Total 0.7 mg/dL (0.0-1.0); Blood Urea Nitrogen 15 mg/dL (9-16); Calcium 8.4 mg/dL (8.4-10.2); Carbon Dioxide 27 mmol/L (22-29); Chloride 98 mmol/L (96-108); Creatinine Clr Calc Pharmacy 41.7; Estimated Glomerular Filt Rate 49; Glucose Random 99 mg/dL (60-115); Lipase 42 U/L (8-78); Magnesium 2.1 mg/dL (1.6-2.6); Potassium 5.4 mmol/L (3.3-5.1); Sodium 131 mmol/L (135-145); Total Protein 5.6 g/dL (6.5-8.0)
[2022-06-25 23:04] LABS: Troponin-I High Sensitivity 5.7 ng/L (<3.5-35.0)
[2022-06-25 23:41] VITALS: BP 174/60; PULSE 450; RESP 20; TEMP 36.9; O2SAT 100
[2022-06-25 23:57] LABS: Ammonia 24 umol/L (13-55)
[2022-06-26] MEDS: 0.9 % Sodium Chloride 500 ML IV (00:31)
[2022-06-26 01:04] LABS: Appearance Urine CLEAR; Color Urine YELLOW; Glucose Urine UA NEG (NEG); Leukocyte Esterase Urine NEG (NEG); Nitrite Urine NEG (NEG); Urine Blood NEG (NEG); Urine Ketones NEG (NEG); Urine Protein NEG (NEG-TRACE)
[2022-06-26 02:24] VITALS: BP 157/56; PULSE 48; RESP 18; O2SAT 100
[2022-06-26 04:08] VITALS: PULSE 44; RESP 18; O2SAT 100
--- NOTE | 2022-06-26 05:51 | PC.NURSE ---
I assumed nursing care of Dillon on his arrival to bed 5. He states he came to the ED for evaluation of mild confusion, I just don't feel right. Since he arrived Dillon has been alert, oriented x 3, calm and cooperative. He makes eye contact with RN and is able to adequately verbalize his needs. He does seem mildly forgetful and requires occasional reminding. He denies pain. He denies SOB. No nausea or vomiting. Dillon continues to await MD dispo.
[2022-06-26 07:31] VITALS: BP 141/42; PULSE 48; RESP 20; TEMP 37.1; O2SAT 95
== END 2022-06-26 08:07 | disposition home or self-care (01) ==
PROVIDERS: Emergency Provider Emergency Medicine; PCP Obstetrics & Gynecology
DX: F41.9 Anxiety disorder, unspecified (principal); R41.82 Altered mental status, unspecified; Z20.822 Contact with and (suspected) exposure to COVID-19; I10 Essential (primary) hypertension; F17.200 Nicotine dependence, unspecified, uncomplicated
CPT/HCPCS: 36415; 70450; 71045; 80048; 80076; 81003; 82077; 82140; 82803; 83605; 83690; 83735; 84484; 85025; 87040; 87635; 93005; 96360; 96361; 99285

== ENCOUNTER 2023-04-19 04:15 | Emergency (ER) | payer OTHER, MEDICARE, SELFPAY ==
[2023-04-19] VITALS (9 sets, daily range): BP systolic 120–169; BP diastolic 37–82; PULSE 49–56; RESP 16; TEMP 37.2; O2SAT 95–98; BMI 19.8
--- NOTE | ~2023-04-19 | CT_ITS ---
EXAMINATION: NONCONTRAST HEAD CT NONCONTRAST CERVICAL SPINE CT INDICATION INFORMATION: Fall. On Corrine gutierrez. COMPARISON: 06/25/2022 TECHNIQUE: Separate noncontrast CT examinations of the head and cervical spine were performed. Coronal and sagittal images were created for each examination at the technologist workstation. This CT examination was performed using dose optimization techniques as appropriate, variously including the following: *Automated exposure control *Adjustment of mA and/or kV according to patient size (this includes techniques or standardized protocols for targeted exams where dose is matched to indication/reason for exam; i.e. extremities or head) *Use of iterative reconstruction technique DLP: 946 mGy-cm FINDINGS: Head: There is no evidence of acute intracranial hemorrhage or territorial infarction. No abnormal mass effect or midline shift is seen. Cherry to white matter differentiation is well preserved. No extra-axial fluid collections are identified. No hydrocephalus. Proportional prominence of the ventricles and sulcal spaces is consistent with mild volume loss. Confluent periventricular and deep white matter hypoattenuation is consistent with severe small vessel ischemic changes. No acute osseous or soft tissue abnormality. The mastoid air cells and visualized portions of the paranasal sinuses are well aerated. Cervical spine: There is anatomic alignment of the vertebral bodies and posterior elements. The atlantoaxial and atlantooccipital articulations are intact. Vertebral body heights are maintained. There is multilevel intervertebral disc space narrowing with endplate osteophyte formation and facet arthropathy. Calcific pannus at the dens. No evidence of acute fracture. No prevertebral soft tissue swelling. Visualized portions of the lung apices are unremarkable. The thyroid gland is unremarkable. CT/CT cervical spine wo IV con IMPRESSION: 1. No acute intracranial finding. Chronic volume loss with small vessel ischemic change. 2. No acute fracture or malalignment of the cervical spine. Moderate degenerative changes.
--- NOTE | ~2023-04-19 | XR_ITS ---
EXAMINATION: XR CHEST CLINICAL INFORMATION: Fall. Wheezing. COMPARISON: 06/25/2022 TECHNIQUE: Frontal view of the chest was obtained. FINDINGS: Lungs are well-inflated and without acute abnormality. No evidence of any focal interstitial infiltrate, consolidation or pleural effusion. Cardiac silhouette has normal size and contour. Again noted are a few broken sternotomy wires. 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 No rib fractures are seen on this limited evaluation. XR/XR chest 1V IMPRESSION: No acute pulmonary disease compared to 06/25/2022.
--- NOTE | 2023-04-19 04:37 | ECG_ITS ---
Test Reason : FALL Blood Pressure : / mmHG Vent. Rate : 055 BPM Atrial Rate : 055 BPM P-R Int : 176 ms QRS Dur : 088 ms QT Int : 426 ms P-R-T Axes : 029 056 006 degrees QTc Int : 407 ms Sinus bradycardia Nonspecific ST and T wave abnormality When compared to the previous EKG of Nonspecific ST and T wave abnormality is new Referred By: Generic ED Physician Electronically Signed By:GUILLAUME OCONNELL MD
[2023-04-19 04:54] LABS: MANUAL DIFF FLAG NO
[2023-04-19 04:56] LABS: Basophils Percent Auto 0.7 % (0-2); Eosinophils Absolute Auto 0.3 X10*3/uL (0.0-0.4); Eosinophils Percent Auto 5.1 % (0-4); Hematocrit 37.3 % (42.0-52.0); Hemoglobin 11.9 g/dl (14.0-18.0); Imm Gran Abs Auto 0.02 X10*3/uL (0.00-0.03); Imm Gran Pct Auto 0.4 % (0.0-0.4); Lymphocytes Absolute Auto 1.8 X10*3/uL (1.2-4.9); Lymphocytes Percent Auto 31.8 % (20-40); Mean Corpuscular HGB Conc 31.9 g/dl (31.0-36.0); Mean Corpuscular Hemoglobin 31.5 pg (27.0-33.0); Mean Corpuscular Volume 98.7 fL (80.0-98.0); Mean Platelet Volume 9.9 fL (9.4-12.4); Monocytes Absolute Auto 0.6 X10*3/uL (0.1-1.2); Monocytes Percent Auto 10.4 % (2-11); Neutrophils Absolute Auto 2.9 x10*3/uL (2.0-8.3); Neutrophils Percent Auto 51.6 % (45-73); Platelet Count 195 X10*3/uL (160-400); Red Blood Count 3.78 X10*6/uL (4.60-5.80); Red Cell Distribution Width 13.8 % (11.0-16.0); White Blood Count 5.7 X10*3/uL (4.8-10.8)
--- NOTE | 2023-04-19 04:58 | PC.NURSE ---
Pt ca&ox2, no signs of distress. Pt denies pain and sob. will continue to monitor.
[2023-04-19 05:21] LABS: Alanine Aminotransferase < 5 U/L (0-40); Albumin Level 3.9 g/dL (3.5-5.0); Alkaline Phosphatase 103 U/L (39-117); Anion Gap 13 (12-20); Aspartate Amino Transferase 9 U/L (5-37); Bilirubin Total 0.6 mg/dL (0.0-1.0); Blood Urea Nitrogen 38 mg/dL (9-16); Carbon Dioxide 21 mmol/L (22-29); Chloride 110 mmol/L (96-108); Creatinine Clr Calc Pharmacy 19.4; Estimated Glomerular Filt Rate 24; Glucose Random 84 mg/dL (60-115); Potassium 5.1 mmol/L (3.3-5.1); Sodium 139 mmol/L (135-145); Total Protein 6.6 g/dL (6.5-8.0)
--- NOTE | 2023-04-19 06:32 | ED.GENADULT ---
HPI - General Adult General Chief complaint: Fall Stated complaint: fall Time Seen by Provider: 04/19/23 06:32 Source: patient and RN notes reviewed Mode of arrival: EMS Limitations: no limitations History of Present Illness HPI narrative: Patient is a 77-year-old male with history of Parkinsons, mild cognitive impairment, HTN, HLD, CAD, afib on Eliquis presenting from [facility] after an unwitnessed fall. Patient reports multiple recent falls. He states that last night he got out of bed and was standing at his bureau. When he turned around to go back to his bed he lost his balance and fell to the floor. He denies loss of consciousness. He denies any head, neck, or back pain. Denies any chest pain or shortness of breath. He denies any headache, changes in vision, abdominal pain or nausea. He denies any other physical complaints. He does report that he has not been drinking much water because I don't feel like it. MD complaint: fall from standing Onset (ago): hour(s) Related Data Home Medications Medication Instructions Recorded Confirmed apixaban 5 mg tablet (Eliquis) 1 tab PO BID 04/17/22 04/17/22 atenolol 25 mg tablet 1 tab PO DAILY 04/17/22 04/17/22 atorvastatin 80 mg tablet 1 tab PO DAILY 04/17/22 04/17/22 carbidopa 25 mg-levodopa 100 mg 1 tab PO TID 04/17/22 04/17/22 tablet gabapentin 300 mg capsule 1 cap PO TID 04/17/22 04/17/22 lisinopril 2.5 mg tablet 1 tab PO DAILY 04/17/22 04/17/22 multivitamin 1 tab PO DAILY 04/17/22 04/17/22 Allergies Allergy/AdvReac Type Severity Reaction Status Date / Time Penicillins Allergy Unknown Unknown Verified 06/26/22 07:17 Review of Systems Review of Systems: As per HPI Yes all other systems are reviewed and are negative Constitutional: Constitutional: Reports as per HPI [facility] Past Medical History Medical History (Updated 04/19/23 @ 16:29 by Lalitha Robert NP) Coronary artery disease HTN (hypertension) Surgical History Hx of CABG Social History Social History (System 06/26/22 @ 07:17 by Flaca Tineo) Alcohol intake: never Patient Tobacco Use Status: Current someday Tobacco user Tobacco use type: Cigar Smoked in Last 30 Days: No Advance Directives: No Advance Directives Information Provided: No Physical Exam ED Vital Signs: Vital Signs - 24 hr 04/19/23 04:33 04/19/23 04:43 04/19/23 06:09 Temperature 99.0 F 99.0 F 99.0 F Pulse Rate 56 56 54 Respiratory Rate 16 16 16 Blood Pressure 151/50 H 151/50 H 142/37 H Pulse Oximetry 95 95 95 Oxygen Delivery Method Room Air Room Air Room Air 04/19/23 08:03 04/19/23 10:38 04/19/23 12:05 Temperature Pulse Rate 49 L 53 51 Respiratory Rate 16 16 16 Blood Pressure 133/64 120/54 L 169/51 H Pulse Oximetry 97 98 97 Oxygen Delivery Method Room Air Room Air Room Air 04/19/23 13:17 Temperature Pulse Rate 51 Respiratory Rate Blood Pressure 169/51 H Pulse Oximetry 97 Oxygen Delivery Method BMI result Body Mass Index 19.8 Vital signs have been reviewed and appear to be correct. Blood pressure mildly elevated. Heart rate bradycardic. Respiratory rate normal. Temperature normal. Oxygen saturation normal. Const General: cooperative and no acute distress Nutritional Appearance: thin Orientation/consciousness: oriented to person, oriented to place, oriented to time and patient oriented x3 Limitations: no limitations HENMT Head: Yes normocephalic and Yes atraumatic Ears: external ears normal General nose exam: Normal external nose present Face and sinus: Yes face symmetric Mouth: oropharynx normal and moist mucous membranes Throat: Yes uvula midline Eyes Pupils: Equal, round and reactive pupils present Neck Neck: Yes normal visual inspection Resp Effort & Inspection: normal respiratory effort and able to speak in complete sentences Auscultation: wheezes expiratory wheezes and upper bilaterally Cardio Rate: bradycardic Rhythm: regular rhythm Heart sounds: S1 normal heart sound present and S2 normal heart sound present GI Palpation (GI): Soft to palpation and nontender Auscultation: normoactive bowel sounds General: Yes no CVA tenderness Back/Spine/Pelvis Back: no CVA tenderness Cervical Spine: collar present Skin General skin exam: elasticity normal and turgor normal Neuro General: oriented to person, oriented to place, oriented to time, patient oriented x3, moves all extremities and CN's II-XI intact bilaterally Cranial nerves: Yes CN's II-XII intact bilaterally and Yes Equal, round and reactive pupils present Cognition (Neuro): normal cognition Motor exam (neuro): Tremors during motor activity present (resting tremors bilateral upper extremities) Extrem General: Yes full ROM, Yes no pedal edema and Yes no calf tenderness Psych Mental Status: mental status grossly normal Affect: normal affect Thought process: Normal thought process present Course Course Course Narrative: 07:27 C-collar removed. Patient now stating he has had a productive cough for several days, denies fevers. Will obtain CXR FINDINGS: Head: There is no evidence of acute intracranial hemorrhage or territorial infarction. No abnormal mass effect or midline shift is seen. Cherry to white matter differentiation is well preserved. No extra-axial fluid collections are identified. No hydrocephalus. Proportional prominence of the ventricles and sulcal spaces is consistent with mild volume loss. Confluent periventricular and deep white matter hypoattenuation is consistent with severe small vessel ischemic changes. No acute osseous or soft tissue abnormality. The mastoid air cells and visualized portions of the paranasal sinuses are well aerated. Cervical spine: There is anatomic alignment of the vertebral bodies and posterior elements. The atlantoaxial and atlantooccipital articulations are intact. Vertebral body heights are maintained. There is multilevel intervertebral disc space narrowing with endplate osteophyte formation and facet arthropathy. Calcific pannus at the dens. No evidence of acute fracture. No prevertebral soft tissue swelling. Visualized portions of the lung apices are unremarkable. The thyroid gland is unremarkable. CT/CT cervical spine wo IV con IMPRESSION: 1.? No acute intracranial finding. Chronic volume loss with small vessel ischemic change. 2.? No acute fracture or malalignment of the cervical spine. Moderate degenerative changes. 10:07 Patient attempting to provide urine specimen at this time. Awaiting results of UA, will recheck BUN/Cr. FINDINGS: Lungs are well-inflated and without acute abnormality. No evidence of any focal interstitial infiltrate, consolidation or pleural effusion. Cardiac silhouette has normal size and contour. Again noted are a few broken sternotomy wires. 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 No rib fractures are seen on this limited evaluation. XR/XR chest 1V IMPRESSION: No acute pulmonary disease compared to 06/25/2022. 11:35 Creatnine mildly improved after IV fluids, will administer additional 500mL bolus. Patient presentation appears consistent with acute exacerbation of Parkinsons. Will place PT eval and case management consult. 16:28 Per Angélica from , patient to be transferred to [facility] at 18:00 today. Reevaluation(s) Reevaluation #1: Patient was to be discharged at 6:00 p.m.. Apparently during the discharge she reported to nursing staff that he saw bright red blood in commode. I evaluate the patient prior to his discharge, I did not see any bright red blood in the commode that he was referring to. I did also do a rectal exam it did not show any bright red blood at all either. The patient's blood counts are at his abseline, no change to discharge plan Time: 18:27 Medications Administered Discontinued Medications Generic Name Dose Route Start Last Admin Trade Name Freq PRN Reason Stop Dose Admin Sodium Chloride 1,000 mls @ 999 mls/hr 04/19/23 07:00 04/19/23 09:00 Ns IV 04/19/23 08:00 Infused .Q1H1M ERNESTO Infusion Sodium Chloride 500 mls @ 500 mls/hr 04/19/23 11:45 04/19/23 14:00 Ns IV 04/19/23 12:44 Infused .Q1H ERNESTO Infusion Medical Decision Making Medical Decision Making MDM Narrative: Patient is a 77-year-old male with history of Parkinsons, mild cognitive impairment, HTN, HLD, afib on Eliquis presenting from [facility] after an unwitnessed fall. On exam patient is awake, A+Ox3, normal neurological exam other than baseline resting tremors noted to upper extremities, head atraumatic, c-collar in place from EMS, expiratory wheezing bilateral upper lobes, ABD SNT. As patient is on Eliquis, concern for ICH, skull or cervical fracture. Will obtain CXR to r/o pneumonia. Will administer IV fluids for PAM and reassess. Plan: CT head and neck, CXR, EKG, basic labs, IV fluids, reassess Please refer to course for remaining clinical decision making. Differential Diagnosis Differential Diagnoses: The differential diagnosis associated with the presentation includes As above Admission/Observation Consideration of admission/observation: Escalation of care including admission/observation considered Lab Data MDM Lab Attestation statement: I reviewed the patient's lab results. 04/19/23 04:51 04/19/23 04:51 Labs: Lab Results 04/19/23 04/19/23 04/19/23 Range/Units 04:51 04:51 04:51 WBC 5.7 (4.8-10.8) X10*3/uL RBC 3.78 L (4.60-5.80) X10*6/uL Hgb 11.9 L (14.0-18.0) g/dl Hct 37.3 L (42.0-52.0) % MCV 98.7 H (80.0-98.0) fL MCH 31.5 (27.0-33.0) pg MCHC 31.9 (31.0-36.0) g/dl RDW 13.8 (11.0-16.0) % Plt Count 195 D (160-400) X10*3/uL MPV 9.9 (9.4-12.4) fL Immature Gran % (Auto) 0.4 (0.0-0.4) % Neut % (Auto) 51.6 (45-73) % Lymph % (Auto) 31.8 (20-40) % [place] % (Auto) 10.4 (2-11) % Eos % (Auto) 5.1 H (0-4) % Baso % (Auto) 0.7 (0-2) % Lymph # (Auto) 1.8 (1.2-4.9) X10*3/uL [place] # (Auto) 0.6 (0.1-1.2) X10*3/uL Eos # (Auto) 0.3 (0.0-0.4) X10*3/uL Baso # (Auto) 0.0 (0.0-0.2) X10*3/uL Abs Immat Gran (auto) 0.02 (0.00-0.03) X10*3/uL Absolute Neuts (auto) 2.9 (2.0-8.3) x10*3/uL Absolute Nucleated RBC 0.000 (0.0-0.012) X10*3/uL Nucleated RBC % (auto) 0.0 (0.0-0.2) /100WBC Sodium 139 (135-145) mmol/L Potassium 5.1 (3.3-5.1) mmol/L Chloride 110 H (96-108) mmol/L Carbon Dioxide 21 L (22-29) mmol/L Anion Gap 13 (12-20) BUN 38 H (9-16) mg/dL Creatinine 2.61 H (0.5-1.4) mg/dL Estim Creat Clear Calc 19.4 Estimated GFR 24 Random Glucose 84 (60-115) mg/dL Calcium 9.0 D (8.4-10.2) mg/dL Total Bilirubin 0.6 (0.0-1.0) mg/dL AST 9 (5-37) U/L ALT < 5 (0-40) U/L Alkaline Phosphatase 103 (39-117) U/L B-Natriuretic Peptide 189 H (<100) pg/mL Total Protein 6.6 (6.5-8.0) g/dL Albumin 3.9 (3.5-5.0) g/dL Urine Color Urine Appearance Urine pH (5.0-9.0) Ur Specific [place] (1.005-1.025) Urine Protein (Neg-Trace) mg/dL Urine Glucose (UA) (Negative) mg/dL Urine Ketones (Negative) mg/dL Urine Blood (Negative) Urine Nitrite (Negative) Ur Leukocyte Esterase (Negative) Urine RBC (0-2) /HPF Urine WBC (0-5) /HPF Ur Squamous Epith Cells (0-2) /HPF Urine Bacteria (None Seen) Hyaline Casts (0-2) /LPF COVID-19 (EDITH) (Negative) COVID-19 Clin Com 04/19/23 04/19/23 04/19/23 Range/Units 10:33 10:33 13:24 WBC (4.8-10.8) X10*3/uL RBC (4.60-5.80) X10*6/uL Hgb (14.0-18.0) g/dl Hct (42.0-52.0) % MCV (80.0-98.0) fL MCH (27.0-33.0) pg MCHC (31.0-36.0) g/dl RDW (11.0-16.0) % Plt Count (160-400) X10*3/uL MPV (9.4-12.4) fL Immature Gran % (Auto) (0.0-0.4) % Neut % (Auto) (45-73) % Lymph % (Auto) (20-40) % [place] % (Auto) (2-11) % Eos % (Auto) (0-4) % Baso % (Auto) (0-2) % Lymph # (Auto) (1.2-4.9) X10*3/uL [place] # (Auto) (0.1-1.2) X10*3/uL Eos # (Auto) (0.0-0.4) X10*3/uL Baso # (Auto) (0.0-0.2) X10*3/uL Abs Immat Gran (auto) (0.00-0.03) X10*3/uL Absolute Neuts (auto) (2.0-8.3) x10*3/uL Absolute Nucleated RBC (0.0-0.012) X10*3/uL Nucleated RBC % (auto) (0.0-0.2) /100WBC Sodium 142 (135-145) mmol/L Potassium 5.5 H (3.3-5.1) mmol/L Chloride 113 H (96-108) mmol/L Carbon Dioxide 20 L (22-29) mmol/L Anion Gap 15 (12-20) BUN 35 H (9-16) mg/dL Creatinine 2.38 H (0.5-1.4) mg/dL Estim Creat Clear Calc 21.3 Estimated GFR 27 Random Glucose 86 (60-115) mg/dL Calcium 9.1 (8.4-10.2) mg/dL Total Bilirubin (0.0-1.0) mg/dL AST (5-37) U/L ALT (0-40) U/L Alkaline Phosphatase (39-117) U/L B-Natriuretic Peptide (<100) pg/mL Total Protein (6.5-8.0) g/dL Albumin (3.5-5.0) g/dL Urine Color Yellow Urine Appearance Clear Urine pH 6.0 (5.0-9.0) Ur Specific [place] 1.015 (1.005-1.025) Urine Protein 30 (1+) H (Neg-Trace) mg/dL Urine Glucose (UA) Negative (Negative) mg/dL Urine Ketones Negative (Negative) mg/dL Urine Blood Negative (Negative) Urine Nitrite Negative (Negative) Ur Leukocyte Esterase Negative (Negative) Urine RBC 0-2 (0-2) /HPF Urine WBC 0-5 (0-5) /HPF Ur Squamous Epith Cells 0-2 (0-2) /HPF Urine Bacteria None Seen (None Seen) Hyaline Casts 0-2 (0-2) /LPF COVID-19 (EDITH) Negative (Negative) COVID-19 Clin Com See Note Independent Interpretation I performed an independent interpretation of an: EKG and CT Scan Interpretation: EKG: sinus bradycardia, rate 55bpm, normal [place] and QT intervals, no evidence of STEMI; I independently reviewed the x-ray and CT scans and agree with the radiologist's interpretation. Radiology Impression Discussion of test interpretation with radiology: I have reviewed the radiologist's reading. Radiologist Impression: FINDINGS: Head: There is no evidence of acute intracranial hemorrhage or territorial infarction. No abnormal mass effect or midline shift is seen. Cherry to white matter differentiation is well preserved. No extra-axial fluid collections are identified. No hydrocephalus. Proportional prominence of the ventricles and sulcal spaces is consistent with mild volume loss. Confluent periventricular and deep white matter hypoattenuation is consistent with severe small vessel ischemic changes. No acute osseous or soft tissue abnormality. The mastoid air cells and visualized portions of the paranasal sinuses are well aerated. Cervical spine: There is anatomic alignment of the vertebral bodies and posterior elements. The atlantoaxial and atlantooccipital articulations are intact. Vertebral body heights are maintained. There is multilevel intervertebral disc space narrowing with endplate osteophyte formation and facet arthropathy. Calcific pannus at the dens. No evidence of acute fracture. No prevertebral soft tissue swelling. Visualized portions of the lung apices are unremarkable. The thyroid gland is unremarkable. CT/CT cervical spine wo IV con IMPRESSION: 1.? No acute intracranial finding. Chronic volume loss with small vessel ischemic change. 2.? No acute fracture or malalignment of the cervical spine. Moderate degenerative changes. Independent Historian Clinical information obtained from an independent historian. History obtained from or confirmed by: EMS External Record Review External record reviewed: Inpatient record, Office record and Outpatient record Chronic Conditions Patient?s care impacted by: Other (Parkinsons) Discharge Plan Discharge Clinical Impression: Parkinson's disease, Acute dehydration, Weakness Patient Disposition: Xfer Inpatient Rehab Fac Instructions: Dehydration (ED), Parkinson Disease (ED) Additional Instructions: Please encourage oral fluids. Patient received 1.5L of normal saline via IV in the ED today. Please recheck basic metabolic panel tomorrow am. BUN/Creatinine in ED today was 35/2.38. No new prescriptions. Prescriptions: No Action multivitamin Tablet 1 tab PO DAILY atorvastatin 80 mg tablet 1 tab PO DAILY atenolol 25 mg tablet 1 tab PO DAILY gabapentin 300 mg capsule 1 cap PO TID carbidopa-levodopa 25-100 mg tablet 1 tab PO TID lisinopril 2.5 mg tablet 1 tab PO DAILY Eliquis 5 mg tablet 1 tab PO BID Referrals: [facility] [Other]
[2023-04-19] MEDS: 0.9 % Sodium Chloride 1,000 ML 999 ML IV (07:32)
--- NOTE | 2023-04-19 07:40 | PC.NURSE ---
iv established, fluids infusing. pt cleared of c-collar, no complaints at this time
[2023-04-19 08:26] LABS: B Type Natriuretic Peptide 189 pg/mL (<100)
[2023-04-19 10:42] LABS: Appearance Urine Clear; Color Urine Yellow; Glucose Urine UA Negative (Negative); Leukocyte Esterase Urine Negative (Negative); Nitrite Urine Negative (Negative); Specific Gravity - Urine 1.015 (1.005-1.025); UMIC TRIGGER UACC YES; Urine Blood Negative (Negative); Urine Ketones Negative (Negative); Urine Protein 30 (1+) mg/dL (Neg-Trace)
[2023-04-19 10:50] LABS: Bacteria Urine None Seen (None Seen); Hyaline Casts Urine 0-2 /LPF (0-2); RBC Urine 0-2 /HPF (0-2); Squamous Epithelial Cell Urine 0-2 /HPF (0-2); WBC Urine 0-5 /HPF (0-5)
--- NOTE | 2023-04-19 11:00 | PC.NURSE ---
Patient resting on stretcher calm and cooperative, denies pain at this time. Patient with some confusion but is able to make needs known. Patient with baseline tremors.
[2023-04-19 11:24] LABS: Anion Gap 15 (12-20); Blood Urea Nitrogen 35 mg/dL (9-16); Calcium 9.1 mg/dL (8.4-10.2); Carbon Dioxide 20 mmol/L (22-29); Chloride 113 mmol/L (96-108); Creatinine Clr Calc Pharmacy 21.3; Estimated Glomerular Filt Rate 27; Glucose Random 86 mg/dL (60-115); Potassium 5.5 mmol/L (3.3-5.1); Sodium 142 mmol/L (135-145)
[2023-04-19] MEDS: 0.9 % Sodium Chloride 500 ML IV (12:16)
--- NOTE | 2023-04-19 13:58 | MHC.CM.ED ---
Addendum entered by Angélica Pappas 04/19/23 16:24: [facility] is able to offer a bed. Patient aware and accepts. Patient aware medicare will be billed. Ana JOSEPH booked for 6pm. [facility] with chart. Patient, Rufino RN and Yvette COREY aware. Original Note: Received case management consult from Breana SOLIZ. Patient came to the ER due to a fall. Work up essentially negative. Physical therapy eval completed. Acute rehab is recommended. Patient is from [facility]. T/W spoke with Shanta at [facility]. Patient does not have a HCP on file with them. Patient is currently confused. Labs and UA ordered by Breana SOLIZ. Referral sent to all 3 local acute rehabs at this time. Continue to monitor for d/c needs.
[2023-04-19 13:59] LABS: COVID-19 Test Negative (Negative); IDNOW Serial# BCCEAD1C
--- NOTE | 2023-04-19 19:33 | PC.NURSE ---
Report called to nurse at [facility]. All questions answered at this time. Patient assisted onto EMS stretcher by EMS staff.
== END 2023-04-19 19:33 ==
PROVIDERS: Registered Nurse Emergency; Emergency Provider Emergency Medicine
DX: G20 Parkinson's disease (principal); E86.0 Dehydration; R53.1 Weakness; R29.6 Repeated falls; Z20.822 Contact with and (suspected) exposure to COVID-19; I10 Essential (primary) hypertension; E78.5 Hyperlipidemia, unspecified; I48.91 Unspecified atrial fibrillation; F17.200 Nicotine dependence, unspecified, uncomplicated; Z79.01 Long term (current) use of anticoagulants; Z79.02 Long term (current) use of antithrombotics/antiplatelets; Z79.899 Other long term (current) drug therapy
CPT/HCPCS: 36415; 70450; 71045; 72125; 80048; 80053; 81001; 83880; 85025; 87635; 93005; 96360; 96361; 97162; 99284; 99285

== ENCOUNTER 2023-06-16 21:20 | Emergency (ER) | payer OTHER, MEDICARE, SELFPAY ==
--- NOTE | ~2023-06-16 | CT_ITS ---
Indication: Trauma EXAMINATION: Contrast enhanced CT of the chest abdomen pelvis. This CT examination was performed using dose optimization techniques as appropriate, variously including the following: *Automated exposure control *Adjustment of mA and/or kV according to patient size (this includes techniques or standardized protocols for targeted exams where dose is matched to indication/reason for exam; i.e. extremities or head) *Use of iterative reconstruction technique. Radiation dose 670 and 308. 85 mL Omnipaque 350. Axial imaging with coronal and sagittal reformatted images. CT chest; The thoracic inlet is within normal limits. The axillary regions are unremarkable. Centrally moderate to marked coronary calcifications There is no bulky central adenopathy. No extravasation of contrast. No suspicious fluid collection in the mediastinum. Imaging the lung saldana. Right lung; There is COPD. Patchy right basilar opacities may represent atelectasis infiltrate or contusion. This is likely superimposed on chronic change interstitial. Left lung; There is a lesion at the left base. The margins are spiculated. Tumor needs to be suspected. This lesion measures 1.3 cm Otherwise COPD is noted. There is no pneumothorax or effusion in the lungs. Upper abdomen; Liver demonstrates some scattered areas of low attenuation which are too small to characterize but may well be incidental. Gallstones in the gallbladder are noted. The spleen is within normal limits The pancreas is unremarkable. The adrenal glands are within normal limits The kidneys are in the early nephrographic phase. Emanating off the superior pole left kidney is a high density structure which cannot be said to be a simple cyst on this study. Hounsfield units 56. Measures 1.6 x 1.3 cm.. The bladder is within normal limits. The bowel pattern is nonobstructing. There is no free fluid. No extravasation of contrast. The abdominal wall is felt to be intact. Atherosclerotic changes in the vasculature noted. There is no bulky adenopathy. Small fluid density overlying the iliacs and underlying the right pelvic wall musculature of uncertain etiology. Measures 2.4 x 1.3 cm. Prominent prostate is noted. Review of the bone windows does not demonstrate evidence for fracture. CT/CT abdomen pelvis w IV con IMPRESSION: This exam is abnormal. There is a spiculated lesion at the left lung base. Tumor needs to be suspected. Tissue sampling or PET scan recommended There is also small lesion extending off the superior pole of left kidney which cannot be said to be a cyst on this study. Small solid lesion needs to be considered. Ultrasound would be recommended. Right basilar opacities area consistent with atelectasis infiltrate. Underlying hematoma given the history of trauma cannot be excluded. There is underlying COPD Otherwise no suspicion for visceral injury in the chest abdomen pelvis. Other findings are as above
--- NOTE | ~2023-06-16 | CT_ITS ---
EXAMINATION: NONCONTRAST HEAD CT NONCONTRAST CERVICAL SPINE CT INDICATION INFORMATION: Fall with head pain and neck pain. COMPARISON: 04/19/2023 TECHNIQUE: Separate noncontrast CT examinations of the head and cervical spine were performed. Coronal and sagittal images were created for each examination at the technologist workstation. This CT examination was performed using dose optimization techniques as appropriate, variously including the following: *Automated exposure control *Adjustment of mA and/or kV according to patient size (this includes techniques or standardized protocols for targeted exams where dose is matched to indication/reason for exam; i.e. extremities or head) *Use of iterative reconstruction technique DLP: 876 mGy-cm FINDINGS: Head: There is no evidence of acute intracranial hemorrhage or territorial infarction. No abnormal mass effect or midline shift is seen. Cherry to white matter differentiation is well preserved. No extra-axial fluid collections are identified. No hydrocephalus. Proportional prominence of the ventricles and sulcal spaces is consistent with mild volume loss. Confluent periventricular and deep white matter hypoattenuation is consistent with severe small vessel ischemic changes. No acute osseous or soft tissue abnormality. Air-fluid level in the left maxillary sinus. The mastoid air cells and visualized portions of the paranasal sinuses are otherwise well aerated. Cervical spine: There is anatomic alignment of the vertebral bodies and posterior elements. The atlantoaxial and atlantooccipital articulations are intact. Vertebral body heights are maintained. There is multilevel intervertebral disc space narrowing with endplate osteophyte formation and facet arthropathy. Calcific pannus at the dens. No evidence of acute fracture. No prevertebral soft tissue swelling. Visualized portions of the lung apices are unremarkable. The thyroid gland is unremarkable. CT/CT cervical spine wo IV con IMPRESSION: 1. No acute intracranial finding. Chronic volume loss with small vessel ischemic change. 2. No acute fracture or malalignment of the cervical spine. Moderate degenerative changes.
--- NOTE | ~2023-06-16 | XR_ITS ---
EXAMINATION: XR ANKLE, RIGHT CLINICAL INFORMATION: Pain. Fall. Swelling. COMPARISON: None available. TECHNIQUE: AP, lateral, and mortise views of the right ankle. FINDINGS: There is no fracture identified. No dislocation. The ankle mortise is congruent. Lateral soft tissue swelling at the ankle. No ankle joint effusion. Diffuse vascular calcifications. XR/XR ankle RT min 3V IMPRESSION: Lateral soft tissue swelling. No fracture or malalignment.
[2023-06-16 21:34] VITALS: BP 170/66; BP 172/69; PULSE 64; PULSE 65; RESP 12; TEMP 36.9; O2SAT 98; BMI 27.4
--- NOTE | 2023-06-16 21:55 | ED_ITS ---
HPI - Fall General Chief Complaint: Extremity Injury, Upper Stated Complaint: FELL AND HIT HEAD ON DRESSER 1 Time Seen by Provider: 06/16/23 21:45 History of Present Illness HPI Narrative: 77-year-old male resident of [facility], mild cognitive impairment, HTN, HLD, CAD, afib on Eliquis who states that he tripped a male striking his left arm and chest on a dresser. He does not believe that he hit his head or loss consciousness. He is currently complaining of right arm pain, right-sided chest and abdominal pain and right ankle pain. The patient does have cognitive impairment and is not a reliable informant. He was not able to tell me his past medical history and was unaware of the medications that he is taking. The patient was seen on 04/19/2023 at that time for multiple falls. At that time he has CT scan of the head and neck which is unremarkable and laboratory evaluation consistent with dehydration. Related Data Home Medications Medication Instructions Recorded Confirmed apixaban 5 mg tablet (Eliquis) 1 tab PO BID 04/17/22 04/17/22 atenolol 25 mg tablet 1 tab PO DAILY 04/17/22 04/17/22 atorvastatin 80 mg tablet 1 tab PO DAILY 04/17/22 04/17/22 carbidopa 25 mg-levodopa 100 mg 1 tab PO TID 04/17/22 04/17/22 tablet gabapentin 300 mg capsule 1 cap PO TID 04/17/22 04/17/22 lisinopril 2.5 mg tablet 1 tab PO DAILY 04/17/22 04/17/22 multivitamin 1 tab PO DAILY 04/17/22 04/17/22 Allergies Allergy/AdvReac Type Severity Reaction Status Date / Time Penicillins Allergy Unknown Unknown Verified 06/26/22 07:17 Review of Systems Review of Systems: Yes Unobtainable due to mental status (Patient is unreliable informant) [facility] Past Medical History [facility] Narrative: Past medical history: Parkinsons, mild cognitive impairment, HTN, HLD, CAD, afib on Eliquis. Social history: He is resident of the assisted living facility, [facility] Medical History Coronary artery disease HTN (hypertension) Surgical History Hx of CABG Social History Social History Alcohol intake: never Patient Tobacco Use Status: Current someday Tobacco user Tobacco use type: Cigar Smoked in Last 30 Days: No Use of substances other than those prescribed or required for medical reasons: No Advance Directives: No Advance Directives Information Provided: No Physical Exam Vital Signs: Vital Signs: Last Vital Signs Temp 97.9 F 06/17/23 01:15 Pulse 52 06/17/23 01:15 Resp 16 06/17/23 01:15 BP 155/57 H 06/17/23 01:15 Pulse Ox 95 06/16/23 22:42 O2 Del Method Room Air 06/17/23 01:15 BMI result Body Mass Index 33.4 Const: Other: Awake, alert, male patient, he has a resting tremor consistent with Parkinson's, he is oriented to person but lacks insight into his past medical history, he was able to describe his fall. HEENT: Other: Head is normal cephalic, he does have tenderness palpation of his right frontal area of his head with no hematoma, abrasion lacerations, pupils were equal round reactive light, sclera contact however normal, mouth moist membranes Eyes: General: appearance normal, both eyes and all related structures Pupils: Equal, round and reactive pupils present Neck: Other: Patient has tenderness palpation of his cervical spine and his trapezius muscles bilaterally Chest: Other: Patient has ecchymosis to his right chest wall with significant tenderness palpation of his right lateral ribs, no crepitus Resp: Other: Breath sounds symmetric bilaterally Effort & Inspection: normal respiratory effort and able to speak in complete sentences Auscultation: clear to auscultation bilaterally Cardio: Rate: regular rate Rhythm: regular rhythm Heart sounds: S1 normal heart sound present, S2 normal heart sound present and no murmurs : General: Yes no CVA tenderness Back/Spine/Pelvis: Back: no CVA tenderness Neuro: Cranial nerves: Yes CN's II-XII intact bilaterally and Yes Equal, round and reactive pupils present Cognition (Neuro): normal cognition Motor exam (neuro): 5/5 motor strength present throughout Extrem: Other: Patient has a large macerated skin tear to his right tricep area, is not actively bleeding The patient's right ankle revealed significant soft tissue swelling with tendern ess palpation of the mediolateral malleolus increased pain with minimal movement, neurovascular intact Psych: Appearance: grossly normal Speech and movement: Normal speech and movement present Affect: normal affect Attitude: cooperative Medications Administered Discontinued Medications Generic Name Dose Route Start Last Admin Trade Name Freq PRN Reason Stop Dose Admin Bacitracin 1 appl 06/16/23 22:07 06/16/23 22:41 Bacitracin Oint 0.9 Gm Packet TOPICAL 06/16/23 22:08 1 appl ONCE ONE Administration Protocol Diphtheria/Tetanus/Acell Pertussis 0.5 ml 06/16/23 22:07 06/16/23 22:35 Diphth,Pertus(Acell),Tet Adult 0.5 Ml Syringe IM 06/16/23 22:08 0.5 ml .ONCE ONE Administration Iohexol 85 ml 06/16/23 23:53 06/16/23 23:54 Iohexol 350 Mg/Ml 100 Ml Infus..Btl IV 06/16/23 23:54 85 ml ONCE ONE Administration Morphine Sulfate 4 mg 06/16/23 21:57 06/16/23 22:36 Morphine Sulfate 4 Mg/Ml Cartridge IVPUSH 06/16/23 21:58 4 mg ONCE STA Administration Protocol Morphine Sulfate 4 mg 06/16/23 22:58 06/16/23 23:11 Morphine Sulfate 4 Mg/Ml Cartridge IVPUSH 06/16/23 22:59 4 mg ONCE STA Administration Protocol Ondansetron HCl 4 mg 06/16/23 21:57 06/16/23 22:36 Ondansetron Hcl 4 Mg/2 Ml Vial IVPUSH 06/16/23 21:58 4 mg ONCE ONE Administration Medical Decision Making Medical Decision Making [facility] Narrative: 77-year-old male resident of [facility], mild cognitive impairment, HTN, HLD, CAD, afib on Eliquis, unreliable informant who presents emergency department for evaluation of a fall at his assisted living residence. Patient was seen for multiple falls on 04/19/2023 is well. The patient's exam did reveal right-sided head tenderness, neck tenderness, right-sided lateral chest wall wall tenderness with ecchymosis but no crepitus, right ankle swelling with significant tenderness palpation over the medial lateral malleolus and a skin tear to the right trapezius area. I ordered the following evaluation on the patient: CBC, CMP, PT/INR, PTT, EKG, CT scan of the head and cervical spine without IV contrast, CT scan of the chest, abdomen pelvis with IV contrast, x- ray of the right ankle. Patient's pain was treated with morphine 4 mg IV and Zofran 4 mg IV. I also ordered a Tdap on the patient. 0129: The patient's laboratory evaluation was unremarkable. CT scan of the head and neck revealed no acute fracture CT scan of the chest and abdomen revealed no acute fractures or significant internal injury, there were 2 incidental findings, left lung lesion and left kidney lesion which will need to be addressed as an outpatient. X-ray of the patient's right ankle revealed no acute fracture pain The patient was unable to stand and walk secondary to his ankle pain. Patient will be placed in a walking boot 0133: Start physician observation Patient will be kept in the emergency department into the can be evaluated by case management and physical therapy Differential Diagnosis Differential diagnosis includes but is not limited to skull fracture, cervical spine fracture, cerebral bleed, right sided rib fractures, pneumothorax, right chest wall contusion, right liver injury, right abdominal wall contusion, electrolyte abnormality, anemia, urine infection, right ankle fracture, right ankle sprain. Admission/Observation Consideration of admission/observation: Escalation of care including admission/observation considered Lab Data MDM Lab Attestation statement: I reviewed the patient's lab results. My interpretation patient's laboratory evaluation is as follows: CBC normal except for an elevated MCV of 101. Potassium elevated 5.8. BUN and creatinine elevated 44 and 1.89-this is chronic chloride elevated 110. Bicarb low 21. LFTs normal. PTT elevated 42.3. 06/16/23 22:27 06/16/23 22:27 Labs: Lab Results 06/16/23 06/16/23 06/16/23 Range/Units 22:27 22:27 22:27 WBC 11.7 H (4.8-10.8) X10*3/uL RBC 4.03 L (4.60-5.80) X10*6/uL Hgb 12.9 L (14.0-18.0) g/dl Hct 40.9 L (42.0-52.0) % MCV 101.5 H (80.0-98.0) fL MCH 32.0 (27.0-33.0) pg MCHC 31.5 (31.0-36.0) g/dl RDW 13.9 (11.0-16.0) % Plt Count 197 (160-400) X10*3/uL MPV 10.1 (9.4-12.4) fL Immature Gran % (Auto) 0.3 (0.0-0.4) % Neut % (Auto) 65.7 (45-73) % Lymph % (Auto) 20.6 (20-40) % Hancock % (Auto) 9.9 (2-11) % Eos % (Auto) 3.1 (0-4) % Baso % (Auto) 0.4 (0-2) % Lymph # (Auto) 2.4 (1.2-4.9) X10*3/uL Hancock # (Auto) 1.2 (0.1-1.2) X10*3/uL Eos # (Auto) 0.4 (0.0-0.4) X10*3/uL Baso # (Auto) 0.1 (0.0-0.2) X10*3/uL Abs Immat Gran (auto) 0.04 H (0.00-0.03) X10*3/uL Absolute Neuts (auto) 7.7 (2.0-8.3) x10*3/uL Absolute Nucleated RBC 0.000 (0.0-0.012) X10*3/uL Nucleated RBC % (auto) 0.0 (0.0-0.2) /100WBC PT 12.7 (11.1-13.3) SEC INR 1.0 (0.9-1.1) APTT 42.3 H (26.0-36.4) SEC Sodium 142 (135-145) mmol/L Potassium 5.8 H (3.3-5.1) mmol/L Chloride 110 H (96-108) mmol/L Carbon Dioxide 21 L (22-29) mmol/L Anion Gap 17 (12-20) BUN 44 H (9-16) mg/dL Creatinine 1.89 H (0.5-1.4) mg/dL Estim Creat Clear Calc 36.2 Estimated GFR 35 Random Glucose 84 (60-115) mg/dL Calcium 9.2 (8.4-10.2) mg/dL Total Bilirubin 0.2 (0.0-1.0) mg/dL AST 14 (5-37) U/L ALT 5 (0-40) U/L Alkaline Phosphatase 75 (39-117) U/L Total Protein 7.2 (6.5-8.0) g/dL Albumin 4.0 (3.5-5.0) g/dL Lipase 44 (8-78) U/L Independent Interpretation I performed an independent interpretation of an: EKG Interpretation: My independent interpretation of the patient's 12 EKG done at 22:12 hours is as follows: Normal sinus rhythm rate of 60, normal OR interval, QRS duration QTC interval, no ST segment elevation, no ST segment depression, no occasional PACs, no PVCs, no T-wave abnormalities compared to EKG dated 04/19/2023 there are no s ignificant changes. My independent interpretation patient's CT scan of the brain is as follows: No acute fracture, no acute bleed Radiology Impression Discussion of test interpretation with radiology: I have reviewed the radiologist's reading. Radiologist Impression: CT head/brain wo IV con IMPRESSION: 1. No acute intracranial finding. Chronic volume loss with small vessel ischemic change. 2. No acute fracture or malalignment of the cervical spine. Moderate degenerative changes. CT chest w IV con and CT abdomen pelvis w IV con IMPRESSION: This exam is abnormal. There is a spiculated lesion at the left lung base. Tumor needs to be suspected. Tissue sampling or PET scan recommended There is also small lesion extending off the superior pole of left kidney which cannot be said to be a cyst on this study. Small solid lesion needs to be considered. Ultrasound would be recommended. Right basilar opacities area consistent with atelectasis infiltrate. Underlying hematoma given the history of trauma cannot be excluded. There is underlying COPD Otherwise no suspicion for visceral injury in the chest abdomen pelvis. Other findings are as above Dictated By:Adrian Ortiz MD Discharge Plan Discharge Clinical Impression: Left pulmonary lesion, Lesion of left prairie [place] kidney Fall Qualifiers: Encounter type: initial encounter Qualified Code(s): W19.XXXA - Unspecified f all, initial encounter Contusion of right chest wall Qualifiers: Encounter type: initial encounter Qualified Code(s): S20.211A - Contusion of right front wall of thorax, initial encounter Abdominal wall contusion Qualifiers: Encounter type: initial encounter Qualified Code(s): S30.1XXA - Contusion of abdominal wall, initial encounter Skin tear of right upper arm without complication Qualifiers: Encounter type: initial encounter Qualified Code(s): S41.111A - Laceration without foreign body of right upper arm, initial encounter Moderate right ankle sprain Qualifiers: Encounter type: initial encounter Qualified Code(s): S93.401A - Sprain of unspecified ligament of right ankle, initial encounter Prescriptions: No Action multivitamin Tablet 1 tab PO DAILY atorvastatin 80 mg tablet 1 tab PO DAILY atenolol 25 mg tablet 1 tab PO DAILY gabapentin 300 mg capsule 1 cap PO TID carbidopa-levodopa 25-100 mg tablet 1 tab PO TID lisinopril 2.5 mg tablet 1 tab PO DAILY Eliquis 5 mg tablet 1 tab PO BID
--- NOTE | 2023-06-16 21:57 | ECG_ITS ---
Test Reason : FALL Blood Pressure : / mmHG Vent. Rate : 060 BPM Atrial Rate : 060 BPM P-R Int : 180 ms QRS Dur : 086 ms QT Int : 412 ms P-R-T Axes : 033 068 054 degrees QTc Int : 412 ms Sinus rhythm with Premature atrial complexes Otherwise normal ECG When compared with ECG of 19-APR-2023 04:36, Premature atrial complexes are now Present T wave inversion no longer evident in Inferior leads Referred By: Rohan Quan Electronically Signed By:SALMA KABA
[2023-06-16 22:30] LABS: MANUAL DIFF FLAG NO
[2023-06-16 22:31] VITALS: BP 171/52; PULSE 65; RESP 18; TEMP 36.8; O2SAT 97
[2023-06-16 22:32] LABS: Basophils Absolute Auto 0.1 X10*3/uL (0.0-0.2); Basophils Percent Auto 0.4 % (0-2); Eosinophils Absolute Auto 0.4 X10*3/uL (0.0-0.4); Eosinophils Percent Auto 3.1 % (0-4); Hematocrit 40.9 % (42.0-52.0); Hemoglobin 12.9 g/dl (14.0-18.0); Imm Gran Abs Auto 0.04 X10*3/uL (0.00-0.03); Imm Gran Pct Auto 0.3 % (0.0-0.4); Lymphocytes Absolute Auto 2.4 X10*3/uL (1.2-4.9); Lymphocytes Percent Auto 20.6 % (20-40); Mean Corpuscular HGB Conc 31.5 g/dl (31.0-36.0); Mean Corpuscular Volume 101.5 fL (80.0-98.0); Mean Platelet Volume 10.1 fL (9.4-12.4); Monocytes Absolute Auto 1.2 X10*3/uL (0.1-1.2); Monocytes Percent Auto 9.9 % (2-11); Neutrophils Absolute Auto 7.7 x10*3/uL (2.0-8.3); Neutrophils Percent Auto 65.7 % (45-73); Platelet Count 197 X10*3/uL (160-400); Red Blood Count 4.03 X10*6/uL (4.60-5.80); Red Cell Distribution Width 13.9 % (11.0-16.0); White Blood Count 11.7 X10*3/uL (4.8-10.8)
[2023-06-16] MEDS: Diphth,Pertus(ACell),Tet Adult 0.5 ML SYRINGE IM (22:35)
[2023-06-16] MEDS: ondansetron HCL 4 MG/2 ML VIAL IVPUSH (22:36)
[2023-06-16] MEDS: Morphine Sulfate 4 MG/ML CARTRIDGE IVPUSH ×2 (22:36→23:11)
[2023-06-16 22:38] LABS: Prothrombin Time 12.7 SEC (11.1-13.3)
[2023-06-16 22:40] LABS: Partial Thromboplastin Time 42.3 SEC (26.0-36.4)
[2023-06-16] MEDS: Bacitracin Oint 0.9 GM PACKET 1 APPL TOPICAL (22:41)
[2023-06-16 22:42] VITALS: BP 132/64; BP 166/80; PULSE 64; PULSE 91; RESP 16; TEMP 36.9; O2SAT 95; BMI 33.4
[2023-06-16 22:56] LABS: Alanine Aminotransferase 5 U/L (0-40); Alkaline Phosphatase 75 U/L (39-117); Anion Gap 17 (12-20); Aspartate Amino Transferase 14 U/L (5-37); Bilirubin Total 0.2 mg/dL (0.0-1.0); Blood Urea Nitrogen 44 mg/dL (9-16); Calcium 9.2 mg/dL (8.4-10.2); Carbon Dioxide 21 mmol/L (22-29); Chloride 110 mmol/L (96-108); Creatinine Clr Calc Pharmacy 36.2; Estimated Glomerular Filt Rate 35; Glucose Random 84 mg/dL (60-115); Lipase 44 U/L (8-78); Potassium 5.8 mmol/L (3.3-5.1); Sodium 142 mmol/L (135-145); Total Protein 7.2 g/dL (6.5-8.0)
[2023-06-16] MEDS: iohexoL 350 MG/ML 100 ML INFUS..BTL 85 ML IV (23:54)
--- NOTE | 2023-06-17 00:14 | PC.NURSE ---
pt right upper arm cleaned with NS bactracin applied, wrapped with gauze and george
[2023-06-17 01:15] VITALS: BP 155/57; PULSE 52; RESP 16; TEMP 36.6
[2023-06-17] MEDS: oxyCODONE HCl Immed Release 5 MG TABLET PO ×3 (01:53→19:36)
--- NOTE | 2023-06-17 01:57 | PC.NURSE ---
pt oob to stand with 2 assist, pt reported unable to bear weight on his right foot, Dr. moy
--- NOTE | 2023-06-17 02:01 | PC.NURSE ---
pt unable to confirm medications
--- NOTE | 2023-06-17 07:20 | PC.NURSE ---
patient sleeping in stretcher, respirations equal and unlabored no signs of distress
[2023-06-17 08:47] VITALS: BP 154/55; PULSE 55; RESP 18; TEMP 36.8; O2SAT 90
[2023-06-17 09:26] LABS: COVID-19 Test Negative (Negative); IDNOW Serial# BCCEAD1C
[2023-06-17] MEDS: Docusate Sodium 100 MG CAPSULE PO ×2 (10:13→19:36)
[2023-06-17] MEDS: Carbidopa/Levodopa 25/100 TABLET 2 TAB PO ×3 (10:13→19:36)
[2023-06-17] MEDS: Acetaminophen 325 MG TABLET 650 MG PO (10:18)
--- NOTE | 2023-06-17 11:04 | PHA.MEDREC ---
Pharmacy Consult ? Medication Reconciliation Pharmacy has completed the medication reconciliation. Used list from [facility]
--- NOTE | 2023-06-17 14:40 | MHC.CM.ED ---
Received case management consult overnight. Patient came to the Er due to a fall. Patient still experiencing ankle pain and requires boot to assist with ambulation. Physical therapy eval completed. Short term rehab is recommended. Patient was at [facility] in April and was d/c'd back to [facility] with Vandana AGRAWAL. Referrals made to all 3 acute rehabs. No bed offers were made. Patient has [facility] benefits. Per Lisa at [facility], patient is not service connected for STR through the [facility]. Patient will need to go to STR under his [employer] benefit. Due to lack of bed availability, referral broadcasted within 25 miles to all facilities that accept [employer]. Continue to monitor for d/c needs.
[2023-06-17 15:45] VITALS: BP 169/83; PULSE 45; RESP 16; TEMP 36.1; O2SAT 97
--- NOTE | 2023-06-17 17:21 | PC.NURSE ---
upon meeting pt endorsed right sided chest pain the same that I always have . Called pharmacy for ordered carbidopa/levodopa which will be loaded in [employer] for future admin. Pt sleeping ow, no distress noted, will cont to jasmina
--- NOTE | 2023-06-17 18:13 | MHC.CM.ED ---
Pt lives at [facility]. A&Ox3. Uses a cane. Has Parkinson's. Has VNA services through [facility] at [facility]. [employer] x3. Pt is hesitant to return to [facility], as he does not think it will help him. Pt will begrudgingly willing to stay over night for any bed offers and will consider tomorrow. If no offers, pt would like to return to [facility]. [facility] and [facility] are pending. CM will follow for discharge planning.
[2023-06-17] MEDS: Apixaban 5 MG TABLET PO (19:36)
[2023-06-17] MEDS: Gabapentin 300 MG CAPSULE PO (19:36)
--- NOTE | 2023-06-17 19:42 | PC.NURSE ---
meet this pt. siting in the recliner, RUQ pain 8 given oxycodone 5mg with other night meds by SABAS. very pleasant, cooperated, educated I.S x 10, 1500 mL, obey the command, well tolerated. CONT monitor s/s or any changes.
[2023-06-17 21:29] VITALS: BP 172/72; PULSE 52; RESP 20; TEMP 36.8; O2SAT 93
[2023-06-18] MEDS: oxyCODONE HCl Immed Release 5 MG TABLET PO ×2 (04:51→11:32)
[2023-06-18 05:07] VITALS: BP 147/74; PULSE 63; RESP 16; TEMP 36.4; O2SAT 98
[2023-06-18] MEDS: lisinopriL 5 MG TABLET PO (08:45)
[2023-06-18] MEDS: Cholecalciferol (Vitamin D3) 25 MCG TABLET PO (08:45)
[2023-06-18] MEDS: atenoloL 25 MG TABLET PO (08:45)
[2023-06-18] MEDS: Carbidopa/Levodopa 25/100 TABLET 2 TAB PO ×2 (08:45→13:20)
[2023-06-18] MEDS: Apixaban 5 MG TABLET PO (08:45)
[2023-06-18] MEDS: Gabapentin 300 MG CAPSULE PO (08:45)
[2023-06-18] MEDS: Docusate Sodium 100 MG CAPSULE PO (08:46)
--- NOTE | 2023-06-18 10:37 | PC.NURSE ---
pt is alert and oriented to self and place. morning meds given. pt has hand tremors due to parkison. no c/o pain.
[2023-06-18] MEDS: Acetaminophen 325 MG TABLET 650 MG PO (11:32)
--- NOTE | 2023-06-18 11:53 | PC.NURSE ---
Patient wants to know whats going on called case management Marguerite will follow up and come talk to him and give him an update.
--- NOTE | 2023-06-18 12:24 | PC.NURSE ---
Patient ambulates with cane and stand by assist unsteady. Patient states he can't sit all day. Patient wants to go home. ? Physical therapy at home or increased homecare services.
--- NOTE | 2023-06-18 12:42 | MHC.CM.ED ---
Patient remains [facility] ER overflow. [facility]. Patient is declining STR at this time and is requesting to return to [facility]. Patient is active with [facility]. [facility] made aware and requested to add PT to patient's services. Spoke with Adelina at [facility]. She is aware patient will return home. Patient, Anitha CARBAJAL and Lelia SOLIZ aware. Ana JOSEPH booked for 3pm. [facility] with chart. Continue to monitor for d/c needs.
== END 2023-06-18 15:26 | disposition home or self-care (01) ==
PROVIDERS: Physician Assistant; Emergency Provider Emergency Medicine Emergency Medical Services; PCP Internal Medicine
DX: S93.401A Sprain of unspecified ligament of right ankle, initial encounter (principal); S41.111A Laceration without foreign body of right upper arm, initial encounter; S20.211A Contusion of right front wall of thorax, initial encounter; S30.1XXA Contusion of abdominal wall, initial encounter; S46.321A Laceration of muscle, fascia and tendon of triceps, right arm, initial encounter; J98.4 Other disorders of lung; R51.9 Headache, unspecified; M54.2 Cervicalgia; I25.10 Atherosclerotic heart disease of native coronary artery without angina pectoris; I48.91 Unspecified atrial fibrillation; M79.602 Pain in left arm; R10.2 Pelvic and perineal pain; R26.2 Difficulty in walking, not elsewhere classified; M25.471 Effusion, right ankle; G20 Parkinson's disease; F02.A0 Dementia in other diseases classified elsewhere, mild, without behavioral disturbance, psychotic disturbance, mood disturbance, and anxiety; R07.89 Other chest pain; M79.601 Pain in right arm; F17.200 Nicotine dependence, unspecified, uncomplicated; R10.9 Unspecified abdominal pain; N28.9 Disorder of kidney and ureter, unspecified; R91.1 Solitary pulmonary nodule; W01.190A Fall on same level from slipping, tripping and stumbling with subsequent striking against furniture, initial encounter; Y93.9 Activity, unspecified; Y99.9 Unspecified external cause status; Y92.009 Unspecified place in unspecified non-institutional (private) residence as the place of occurrence of the external cause; Z20.822 Contact with and (suspected) exposure to COVID-19; Z20.828 Contact with and (suspected) exposure to other viral communicable diseases; Z79.01 Long term (current) use of anticoagulants; Z91.81 History of falling; Z79.899 Other long term (current) drug therapy; Z71.6 Tobacco abuse counseling; Z23 Encounter for immunization
CPT/HCPCS: 36415; 70450; 71260; 72125; 73610; 74177; 80053; 83690; 85025; 85610; 85730; 87635; 90471; 90715; 93005; 96372; 96374; 96375; 96376; 97162; 99285; J2270; J2405; Q9967

== ENCOUNTER → 2023-06-16 21:57 | Outpatient (BNV) | payer MEDICARE, MEDICAID, SELFPAY | PROVIDERS: Emergency Provider Emergency Medicine Emergency Medical Services; Visit Provider Internal Medicine | DX: I49.1 Atrial premature depolarization (principal) | CPT/HCPCS: 93010 ==

== ENCOUNTER 2024-10-05 17:18 | Emergency (ER) | payer OTHER, SELFPAY ==
[2024-10-05 17:46] VITALS: BP 152/78; BP 183/114; PULSE 73; PULSE 88; RESP 18; TEMP 37; O2SAT 96; O2SAT 97; BMI 21.0
--- NOTE | 2024-10-05 18:11 | ED_ITS ---
HPI - General Adult General Chief complaint: General Medical Stated complaint: AMS Time Seen by Provider: 10/05/24 17:45 Source: patient Limitations: other (Dementia) History of Present Illness ED Provider: Michelle Kidd PA-C HPI narrative: 79 year old male seen in the ED with cc of right eye and right ear discomfort x1 day with associated confusion. Reports gradual onset that has increasingly worsened over the past 4 hours. Eye discomfort is described as visual disturbance, not further specified. Ear discomfort described as blocked and muffled sounds. According to PT, they are more tremulous than normal but have Parkinson's at baseline. Currently is alert and oriented to self and place but not time. Reports that they are not fully med compliant due to forgetfulness at baseline. Denies chest pain, SOB, headache, dizziness, fatigue. Denies recent illness, medication changes, changes in daily routine, history of current concern. MD complaint: right eye and right ear discomfort Onset (ago): hour(s) (6) Location: head (right ear) and eyes (right) Radiation: non-radiation Severity: mild Relieving factors: none Exacerbating factors: none Associated symptoms: confusion Treatments prior to arrival: none Related Data Home Medications ?Medication ?Instructions ?Recorded ?Confirmed apixaban 5 mg tablet (Eliquis) 1 tab PO BID 04/17/22 06/17/23 atenolol 25 mg tablet 1 tab PO DAILY 04/17/22 06/17/23 carbidopa 25 mg-levodopa 100 mg 2 tab PO QID 04/17/22 06/17/23 tablet gabapentin 300 mg capsule 1 cap PO TID 04/17/22 06/17/23 calcium carbonate 500 mg PO DAILY 06/17/23 06/17/23 cholecalciferol (vitamin D3) 25 25 mcg PO DAILY 06/17/23 06/17/23 mcg (1,000 unit) tablet (Vitamin D3) hydroxyzine HCl 25 mg tablet 25 mg PO Q6H PRN Anxiety 06/17/23 06/17/23 lisinopril 5 mg tablet 5 mg PO DAILY 06/17/23 06/17/23 Allergies Allergy/AdvReac Type Severity Reaction Status Date / Time Penicillins Allergy Unknown Unknown Verified 10/05/24 17:48 Review of Systems 2 Review of Systems: Neuro: alert to person and place; not alert to time. HEENT: Reports visual disturbance to right eye and auditory disturbance to right ear. Denies photophobia, erythema, pruritus. Denies discharge from eyes, ears, nose. Denies hearing loss. Denies difficulty swallowing. Cardiac: Denies chest pain, palpitations. Pulmonary: Denies cough, SOB, sputum production Abdominal: Denies nausea, vomiting, abdominal pain, constipation, diarrhea MSK:Reports tremors in upper extremities bilaterally (at baseline). Denies swelling, impaired mobility, weakness. Yes all other systems are reviewed and are negative Constitutional: Constitutional: Reports as per HPI Eyes: Eyes: Reports other (visual disturbance of right eye; unable to specify further ) ENT: Reports as per HPI Cardiovascular: Cardiovascular: Reports no additional cardiovascular complaints Respiratory: Respiratory: Reports no additional respiratory complaints Gastrointestinal: Gastrointestinal: Reports no additional gastrointestinal complaints Genitourinary: Genitourinary: Reports no additional male genitourinary complaints Musculoskeletal: Musculoskeletal: Reports as per HPI Integumentary/Breasts: Skin/Breast: Reports system reviewed and no additional complaints, except as docu Neurologic: Reports as per HPI and Reports confusion Psychiatric: Psychiatric: Reports no additional psychiatric complaints and Reports confusion Endocrine: Endocrine: Reports no additional endocrine complaints Hematologic/Lymphatic: Hematologic/Lymphatic: Reports no additional hematologic/lymphatic complaints Allergic/Immunologic: Allergic/Immunologic: Reports no additional allergic/immunologic complaints [facility] Past Medical History Attestation statement: The following information was validated with the patient. Medical History Coronary artery disease HTN (hypertension) Surgical History Hx of CABG Social History Social History Alcohol intake: never Patient Tobacco Use Status: Current someday Tobacco user Tobacco use type: Cigar Advance Directives: No Advance Directives Information Provided: No Do you have a plan to hurt others: No Plan Physical Exam ED Vital Signs: Vital Signs - 24 hr 10/05/24 17:46 Temperature 98.6 F Pulse Rate 73 Respiratory Rate 18 Blood Pressure 183/114 H Pulse Oximetry 96 Oxygen Delivery Method Room Air BMI result Body Mass Index 21.0 Const General: cooperative, no acute distress, alert and confusion Nutritional Appearance: average body habitus Orientation/consciousness: oriented to person, oriented to place and confusion Limitations: altered mental status, physical limitations (utilizes cane ) and other limitations (cane) [facility] Head: Yes normal to inspection, Yes normocephalic and Yes atraumatic Ears: external ears normal, TM's normal bilaterally, EAC's normal and hearing grossly impaired ( muffled ) on the right General nose exam: Normal external nose present, Normal nares present, Normal nasal mucous membranes and turbinates present and No nasal discharge present Face and sinus: Yes normal facial exam and Yes face symmetric Mouth: Normal oral and palatal mucosa present, lip normal and tongue normal Eyes Alignment and Position: alignment normal and position normal Periorbital: periorbital findings normal Eyelids: Yes eyelids normal Conjunctivae: conjunctivae normal Sclerae: sclerae normal Pupils: Irregular pupils and Pupil size comments (right pupil slightly larger in size than left ) on the right EOM: EOMs intact bilaterally Direct Ophthalmoscopy: normal light reflex and no photophobia Neck Neck: Yes normal visual inspection and Yes full ROM Resp Effort & Inspection: normal respiratory effort, able to speak in complete sentences and abnormal respiratory pattern Auscultation: clear to auscultation bilaterally Cardio Rate: regular rate Rhythm: regular rhythm GI Inspection: Yes normal to inspection Auscultation: normal bowel sounds Skin General skin exam: no rashes or lesions noted Hair: normal Neuro General: oriented to person, oriented to place and confusion Cranial nerves: Yes Bilaterally intact EOM present and Yes Ability to bilaterally rotate head present Motor exam (neuro): 5/5 motor strength present throughout and Other motor observations present (tremor noted in upper extremities ) Pupils: Normal pupillary reactivity/response: right and left Extrem General: Yes normal to inspection and Yes full ROM Right lower extremity: normal to inspection Left lower extremity: normal to inspection Medications Administered Discontinued Medications Generic Name Dose Route Start Last Admin Trade Name Freq PRN Reason Stop Dose Admin Amlodipine Besylate 5 mg 10/05/24 20:03 10/05/24 20:31 Amlodipine Besylate 5 Mg Tablet PO 10/05/24 20:04 5 mg ONCE ONE Administration Protocol Apixaban 5 mg 10/05/24 20:03 10/05/24 20:32 Apixaban 5 Mg Tablet PO 10/05/24 20:04 5 mg ONCE ONE Administration Carbidopa/Levodopa 2 tab 10/05/24 20:03 10/05/24 20:31 Carbidopa/Levodopa 25/100 Tablet PO 10/05/24 20:04 2 tab ONCE ONE Administration Gabapentin 400 mg 10/05/24 20:03 10/05/24 20:32 Gabapentin 400 Mg Capsule PO 10/05/24 20:04 400 mg ONCE ONE Administration Medical Decision Making Medical Decision Making [facility] Narrative: I Michelle Kidd PA-C personally assessed and manage the patient, Mary NASH observed and helped to formulate the documentation 79 year old male seen in the ED with cc of right eye and right ear discomfort x1 day with associated confusion. Reports gradual onset that has increasingly worsened over the past 4 hours. Eye discomfort is described as visual disturbance, not further specified. Ear discomfort described as blocked and muffled sounds. According to PT, they are more tremulous than normal but have Parkinson's at baseline. Currently is alert and oriented to self and place but not time. Reports that they are not fully med compliant due to forgetfulness at baseline. Denies chest pain, SOB, headache, dizziness, fatigue. Denies recent illness, medication changes, changes in daily routine, history of current concern. Problem: current problems include right eye and right ear disturbances. Right pupil noted to be slightly larger in size than left. Confusion which is reportedly baseline but worse today; alert to person and place but not time. HX: due to confusion, pt is an unreliable historian making it difficult to obtain PMH. DDx: 1. glaucoma; consider due to visual disturbance localized to one eye; gradual onset; mild difference in pupil size 2. migraine; unlikely as pt denies pain; consider due to visual disturbance / ear discomfort localized to right 3. cluster headache; unlikely as pt denies pain; consider due to visual disturbance / ear discomfort localized to right 4. intracranial hemorrhage; consider given physical exam finding (unequal pupil sizes) and confusion. Unlikely due to negative FASTED. 5. sinusitis; unlikely given that pt denies recent illness, sinus pain. Consider due to unilateral presentation 6. otitis media; unlikely due to lack of pain and lack of notable physical exam concerns. Consider due to unilateral ear complaints. 7. temportal arteritis; consider given physical exam findings and concerns regarding right eye disturbance. Unlikely due to lack of headache, jaw claudication. 8. Urinary tract infection; consider given confusion. Plan: - CBC to assess for hematologic abnormalities or signs of infectious process - CMP to assess for any metabolic abnormalities including electrolyte imbalance - UA to assess for UTI - CT without contrast to assess for intracranial hemorrhage Per Michelle Kidd PA-C Patient coming in with ?? confusion, without specific complaints or concerns. He is neurologically intact, he does not require imaging for a CT scan, the retirement could not confirm his baseline mentation, he knows who he is, he is behaving appropriately. Furthermore he took his medications readily when given to him. He is eating and drinking. Screening labs including UA we will be obtained. He does not require further assessment. I am not appreciating anisocoria of the right pupil. I have independently reviewed the following tests: Labs: No leukocytosis, not anemic, no electrolyte abnormality, urine not infected Differential Diagnosis Differential Diagnoses: The differential diagnosis associated with the presentation includes 1. glaucoma 2. migraine 3. cluster headache 4. intracerebral hemorrhage 5. sinusitis 6. otitis media 7. temportal arteritis 8. Urinary tract infection Lab Data 10/05/24 19:25 10/05/24 19:25 Labs: Lab Results 10/05/24 10/05/24 Range/Units 19:25 20:35 WBC 6.8 (4.8-10.8) X10*3/uL RBC 4.04 L (4.60-5.80) X10*6/uL Hgb 12.9 L (14.0-18.0) g/dl Hct 39.2 L (42.0-52.0) % MCV 97.0 (80.0-98.0) fL MCH 31.9 (27.0-33.0) pg MCHC 32.9 (31.0-36.0) g/dl RDW 13.6 (11.0-16.0) % Plt Count 191 (160-400) X10*3/uL MPV 10.0 (9.4-12.4) fL Immature Gran % (Auto) 0.3 (0.0-0.4) % Neut % (Auto) 58.2 (45-73) % Lymph % (Auto) 28.6 (20-40) % Stanley % (Auto) 10.0 (2-11) % Eos % (Auto) 2.5 (0-4) % Baso % (Auto) 0.4 (0-2) % Lymph # (Auto) 1.9 (1.2-4.9) X10*3/uL Stanley # (Auto) 0.7 (0.1-1.2) X10*3/uL Eos # (Auto) 0.2 (0.0-0.4) X10*3/uL Baso # (Auto) 0.0 (0.0-0.2) X10*3/uL Abs Immat Gran (auto) 0.02 (0.00-0.03) X10*3/uL Absolute Neuts (auto) 4.0 (2.0-8.3) x10*3/uL Absolute Nucleated RBC 0.000 (0.0-0.012) X10*3/uL Nucleated RBC % (auto) 0.0 (0.0-0.2) /100WBC Sodium 140 (135-145) mmol/L Potassium 4.7 (3.3-5.1) mmol/L Chloride 108 (96-108) mmol/L Carbon Dioxide 26 (22-29) mmol/L Anion Gap 11 L (12-20) BUN 26 H (9-16) mg/dL Creatinine 1.89 H (0.5-1.4) mg/dL Estim Creat Clear Calc 32.7 Estimated GFR 34 Random Glucose 98 (60-115) mg/dL Calcium 8.9 (8.4-10.2) mg/dL Magnesium 2.4 (1.6-2.6) mg/dL Total Bilirubin 0.3 (0.0-1.0) mg/dL AST 19 (5-37) U/L ALT 8 (0-40) U/L Alkaline Phosphatase 81 (39-117) U/L Total Protein 7.1 (6.5-8.0) g/dL Albumin 4.0 (3.5-5.0) g/dL Urine Color Yellow Urine Appearance Clear Urine pH 6.0 (5.0-9.0) Ur Specific Pelican 1.010 (1.005-1.025) Urine Protein 100 (2+) H (Neg-Trace) mg/dL Urine Glucose (UA) Negative (Negative) mg/dL Urine Ketones Negative (Negative) mg/dL Urine Blood Negative (Negative) Urine Nitrite Negative (Negative) Ur Leukocyte Esterase Negative (Negative) Discharge Plan Discharge Clinical Impression: Confusion Patient Disposition: Home, Self-Care Additional Instructions: The patient's behavior has been appropriate in the emergency department. Furthermore, the patient readily took all of his medications without conflict. He is eating and drinking. Screening labs and a urinalysis were obtained, his medical assessment was normal. He can follow up with his primary care provider. Prescriptions: No Action atenolol 25 mg tablet 1 tab PO DAILY gabapentin 300 mg capsule 1 cap PO TID carbidopa-levodopa 25-100 mg tablet 2 tab PO QID Eliquis 5 mg tablet 1 tab PO BID hydroxyzine HCl 25 mg Tablet 25 mg PO Q6H PRN (Reason: Anxiety) Rx Instructions: started on 06/12 x14 days calcium carbonate [Tums 500] 500 mg calcium (1,250 mg) Tablet,Chewable 500 mg PO DAILY lisinopril 5 mg tablet 5 mg PO DAILY cholecalciferol (vitamin D3) [Vitamin D3] 25 mcg (1,000 unit) Tablet 25 mcg PO DAILY Print Language: Urdu
[2024-10-05 19:28] LABS: MANUAL DIFF FLAG NO
[2024-10-05 19:29] LABS: Basophils Percent Auto 0.4 % (0-2); Eosinophils Absolute Auto 0.2 X10*3/uL (0.0-0.4); Eosinophils Percent Auto 2.5 % (0-4); Hematocrit 39.2 % (42.0-52.0); Hemoglobin 12.9 g/dl (14.0-18.0); Imm Gran Abs Auto 0.02 X10*3/uL (0.00-0.03); Imm Gran Pct Auto 0.3 % (0.0-0.4); Lymphocytes Absolute Auto 1.9 X10*3/uL (1.2-4.9); Lymphocytes Percent Auto 28.6 % (20-40); Mean Corpuscular HGB Conc 32.9 g/dl (31.0-36.0); Mean Corpuscular Hemoglobin 31.9 pg (27.0-33.0); Monocytes Absolute Auto 0.7 X10*3/uL (0.1-1.2); Neutrophils Percent Auto 58.2 % (45-73); Platelet Count 191 X10*3/uL (160-400); Red Blood Count 4.04 X10*6/uL (4.60-5.80); Red Cell Distribution Width 13.6 % (11.0-16.0); White Blood Count 6.8 X10*3/uL (4.8-10.8)
[2024-10-05 19:42] LABS: Alanine Aminotransferase 8 U/L (0-40); Alkaline Phosphatase 81 U/L (39-117); Anion Gap 11 (12-20); Aspartate Amino Transferase 19 U/L (5-37); Bilirubin Total 0.3 mg/dL (0.0-1.0); Blood Urea Nitrogen 26 mg/dL (9-16); Calcium 8.9 mg/dL (8.4-10.2); Carbon Dioxide 26 mmol/L (22-29); Chloride 108 mmol/L (96-108); Creatinine Clr Calc Pharmacy 32.7; Estimated Glomerular Filt Rate 34; Glucose Random 98 mg/dL (60-115); Magnesium 2.4 mg/dL (1.6-2.6); Potassium 4.7 mmol/L (3.3-5.1); Sodium 140 mmol/L (135-145); Total Protein 7.1 g/dL (6.5-8.0)
[2024-10-05] MEDS: amLODIPine Besylate 5 MG TABLET PO (20:31)
[2024-10-05] MEDS: Carbidopa/Levodopa 25/100 TABLET 2 TAB PO (20:31)
[2024-10-05] MEDS: Apixaban 5 MG TABLET PO (20:32)
[2024-10-05] MEDS: Gabapentin 400 MG CAPSULE PO (20:32)
[2024-10-05 20:42] LABS: Appearance Urine Clear; Color Urine Yellow; Glucose Urine UA Negative (Negative); Leukocyte Esterase Urine Negative (Negative); Nitrite Urine Negative (Negative); UMIC TRIGGER UACC YES; Urine Blood Negative (Negative); Urine Ketones Negative (Negative); Urine Protein 100 (2+) mg/dL (Neg-Trace)
[2024-10-05 20:47] LABS: Bacteria Urine None Seen (None Seen); Hyaline Casts Urine 0-2 /LPF (0-2); RBC Urine 0-2 /HPF (0-2); Squamous Epithelial Cell Urine 0-2 /HPF (0-2); WBC Urine 0-5 /HPF (0-5)
--- NOTE | 2024-10-05 22:20 | PC.NURSE ---
report called to [facility]
[2024-10-05 23:16] VITALS: BP 149/79; PULSE 74; RESP 18; TEMP 36.6; O2SAT 95
[2024-10-05 23:17] VITALS: BP 149/79; PULSE 74; RESP 18; TEMP 36.6; O2SAT 95
== END 2024-10-05 23:18 | disposition home or self-care (01) ==
PROVIDERS: Physician Assistant Medical; Emergency Provider Emergency Medicine Emergency Medical Services; PCP Internal Medicine
DX: R41.0 Disorientation, unspecified (principal); H53.9 Unspecified visual disturbance; H92.01 Otalgia, right ear; I10 Essential (primary) hypertension; F17.200 Nicotine dependence, unspecified, uncomplicated; Z79.899 Other long term (current) drug therapy
CPT/HCPCS: 36415; 80053; 81001; 83735; 85025; 99283

== ENCOUNTER 2025-04-29 09:39 | Emergency (ER) | payer OTHER, SELFPAY ==
--- NOTE | ~2025-04-29 | XR_ITS ---
EXAMINATION: XR CHEST CLINICAL INFORMATION: cough COMPARISON: None available. TECHNIQUE: Frontal view of the chest was obtained. FINDINGS: Again noted are mediastinal wires, broken along the superior right margin. Heart size is within normal limits. There are chronic coarse interstitial markings in the lung bases, more on the left. 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 Linear metallic device projects over the central left hemidiaphragm, it was in place with the prior. XR/XR chest 1V IMPRESSION: No acute disease, chronic coarse lung markings. Chronic left humeral neck fracture with pseudoarthrosis. Electronically signed by: Matias Godfrey MD 04/29/2025 10:39 AM EDT
--- NOTE | 2025-04-29 09:48 | ECG_ITS ---
Test Reason : weakness Blood Pressure : */* mmHG Vent. Rate : 65 BPM Atrial Rate : 65 BPM P-R Int : 182 ms QRS Dur : 88 ms QT Int : 396 ms P-R-T Axes : 6 61 17 degrees QTcB Int : 411 ms Normal sinus rhythm Normal ECG When compared with ECG of 16-Jun-2023 22:12, Premature atrial complexes are no longer Present Nonspecific T wave abnormality now evident in Inferior leads Referred By: Dorina Arreaga Electronically Signed By: GUILLAUME OCONNELL MD
[2025-04-29 09:51] VITALS: BP 120/47; BP 130/58; PULSE 72; PULSE 77; RESP 17; TEMP 36.5; O2SAT 94; O2SAT 95; BMI 24.5
--- NOTE | 2025-04-29 09:54 | ED_ITS ---
HPI - Weakness General Chief complaint: Weakness Stated complaint: BILAT LEG PAIN, WEAKNESS Time Seen by Provider: 04/29/25 09:40 Source: patient, EMS and old records reviewed Mode of arrival: EMS Limitations: no limitations History of Present Illness ED Provider: TUNDE HPI Narrative: 80 yo male with PMH of parkinsons, afib on eliquis, HTN, HLD here with c/o one day of bilateral leg weakness, cough, fatigue, feels slightly confused. He has had a dry cough. He denies CP/SOB. He has no abdominal pain, no n/v/d, dysuria. He states he has not fallen or hit his head. He doesn't think he had a fever. He is not aware of any sick contacts. He states he tries to walk with his cane and his legs feel too weak and he feels shaky. EMS notes his O2 sat was 92% on RA - he has a hx of heavy smoking MD Complaint: generalized weakness Onset (ago): day(s) (1) Duration: progressively worsening Location: generalized Migration: none Severity: moderate Relieving factors: rest Exacerbating factors: movement and exertion Context: other Associated symptoms: other (cough) Related Data Home Medications ?Medication ?Instructions ?Recorded ?Confirmed apixaban 5 mg tablet (Eliquis) 1 tab PO BID 04/17/22 04/29/25 carbidopa 25 mg-levodopa 100 mg 2 tab PO QID 04/17/22 04/29/25 tablet gabapentin 300 mg capsule 400 mg PO BID 04/17/22 04/29/25 calcium carbonate 500 mg PO DAILY 06/17/23 04/29/25 cholecalciferol (vitamin D3) 25 25 mcg PO DAILY 06/17/23 04/29/25 mcg (1,000 unit) tablet (Vitamin D3) amantadine HCl 100 mg capsule 100 mg PO DAILY 04/29/25 04/29/25 amlodipine 2.5 mg tablet 2.5 mg PO DAILY 04/29/25 04/29/25 gabapentin 100 mg capsule 100 mg PO BEDTIME 04/29/25 04/29/25 melatonin 3 mg tablet 3 mg PO BEDTIME 04/29/25 04/29/25 sertraline 25 mg tablet 25 mg PO DAILY 04/29/25 04/29/25 Allergies Allergy/AdvReac Type Severity Reaction Status Date / Time Penicillins Allergy Unknown Unknown Verified 04/29/25 09:54 Review of Systems 2 Review of Systems: Constitutional : No Fever, No Chills, No Fatigue ENT/Mouth : No sore throat, No Rhinorrhea Eyes: No Eye Pain, No Swelling, No Redness Cardiovascular : No Chest Pain, No SOB, No Dyspnea on Exertion Respiratory : pos Cough, No Sputum Gastrointestinal : No Nausea, No Vomiting, No Diarrhea, No abdominal Pain Genitourinary : No Dysuria, No Urinary Frequency, No Hematuria, Musculoskeletal : No joint pain, No Myalgias, No Joint Swelling Skin : No Skin Lesions, No rash Neuro : pos Weakness, No Numbness, No Dizziness, no Headache Psych : No Anxiety/Panic, No Depression Heme/Lymph: No Bruising, No Bleeding,No Lymphadenopathy Endocrine : No Polyuria, No Polydipsia All other systems reviewed and are negative [facility], [facility] Past Medical History Attestation statement: The following information was validated with the patient. Source: old records reviewed Medical History Coronary artery disease HTN (hypertension) Surgical History Hx of CABG Social History Social History Alcohol intake: never Patient Tobacco Use Status: Current someday Tobacco user Tobacco use type: Cigar Smoked in Last 30 Days: No Use of substances other than those prescribed or required for medical reasons: No Advance Directives: No Advance Directives Information Provided: Yes Do you have a plan to hurt others: No Plan Physical Exam 2 Vital Signs: Vital Signs: Last Vital Signs Temp 99.1 F 04/30/25 06:15 Pulse 63 04/30/25 06:15 Resp 18 04/30/25 06:15 BP 140/68 H 04/30/25 10:55 Pulse Ox 96 04/30/25 06:15 O2 Del Method Room Air 04/30/25 06:15 Oxygen Flow Rate 2 04/29/25 09:51 BMI result Body Mass Index 24.5 Appearance: Alert. Oriented X3 slightly confused on day of month. No acute distress. Eyes: Pupils equal, round and reactive to light. ENT: Pharynx dry MM Neck: Normal inspection. Neck supple. CVS: Normal heart rate and rhythm. Pulses normal. Respiratory: No respiratory distress. Breath sounds diminished Abdomen: Soft and nontender. Skin: Skin warm and dry. Normal skin color. Normal skin turgor. Extremities: No lower extremity edema. No calf ttp Neuro: Oriented X 3. No motor deficit. No sensory deficit. CN2-12 intact Course Course Course Narrative: will take off O2 - has been a heavy smoker has no CP/SOB and his CXR is clear if he is not on O2 I am going to talk to case management he is at [facility] but not clear if assisted living is appropriate. Reevaluation(s) Reevaluation #1: 95% on RA no O2 requirement Time: 08:41 Date: 04/30/25 Provider: MARTÍNEZ Ho Patient in physician observation for case management needs. No acute events reported overnight.? No current issues or complaints. VS stable. Patient is pending placement at facility PT recommending short term rehab. CM on board. home meds restarted this morning. Will continue to monitor. Reevaluation #2: Time: 14:19 Date: 04/30/25 Provider: MARTÍNEZ Ho Physician observation ended at 14:19. Patient is being discharged [facility] for [facility]. VS are stable. Does not require medical admission to the hospital at this time. stable for d/c Medications Administered Generic Name Dose Route Start Last Admin Trade Name Freq PRN Reason Stop Dose Admin Amantadine HCl 100 mg 04/30/25 09:00 04/30/25 11:51 Amantadine Hcl 100 Mg Capsule PO 100 mg DAILY ERNESTO Administration Amlodipine Besylate 2.5 mg 04/30/25 09:00 04/30/25 10:55 Amlodipine Besylate 2.5 Mg Tablet PO 2.5 mg DAILY ERNESTO Administration Protocol Apixaban 5 mg 04/30/25 09:00 04/30/25 10:55 Apixaban 5 Mg Tablet PO 5 mg BID ERNESTO Administration Calcium Carbonate 750 mg 04/30/25 09:00 04/30/25 10:55 Calcium Carbonate 750 Mg Tab.Chew PO 750 mg DAILY ERNESTO Administration Carbidopa/Levodopa 2 tab 04/30/25 09:00 04/30/25 11:50 Carbidopa/Levodopa 25/100 Tablet PO 2 tab QID ERNESTO Administration Gabapentin 400 mg 04/30/25 09:00 04/30/25 10:55 Gabapentin 400 Mg Capsule PO 400 mg BID ERNESTO Administration Sertraline HCl 25 mg 04/30/25 09:00 04/30/25 10:55 Sertraline Hcl 25 Mg Tablet PO 25 mg DAILY ERNESTO Administration Vitamin D 25 mcg 04/30/25 09:00 04/30/25 10:55 Cholecalciferol (Vitamin D3) 25 Mcg Tablet PO 25 mcg DAILY ERNESTO Administration Discontinued Medications Generic Name Dose Route Start Last Admin Trade Name Ricardo PRN Reason Stop Dose Admin Lactated Ringer's 1,000 mls @ 999 mls/hr 04/29/25 09:59 04/29/25 13:22 Lr IV 04/29/25 10:59 Infused .Q1H1M ONE Infusion Medical Decision Making Medical Decision Making [facility] Narrative: 80 yo male with PMH of parkinsons, afib on eliquis, HTN, HLD here with c/o feeling weak and worsening parkinsons with a cough. He has no other symptoms. He denies falls. He denies or GI symptoms. He is mildly confused on the day of the month. At this time will need labs, UA, CXR, viral panel. Wide differential at this time given his presentation possible viral syndrome, dehydration, anemia, parkinsons disease, urinary or resp pathology. Will start on IVF as well. Differential Diagnosis Differential Diagnoses: The differential diagnosis associated with the presentation includes viral syndrome, dehydration, anemia, parkinsons disease, urinary or respiratory pathology Admission/Observation Consideration of admission/observation: Escalation of care including admission/observation considered physician observation started at 1154am pending PT/CM cannot go back to rest home Consult Healthcare Provider Management of the patient was discussed with: Behavioral Health Provider Lab Data [facility] Lab Attestation statement: I reviewed the patient's lab results. 04/29/25 10:10 04/29/25 10:09 Labs: Lab Results 04/29/25 04/29/25 04/29/25 Range/Units 10:09 10:10 10:11 WBC 6.2 (4.8-10.8) X10*3/uL RBC 3.67 L (4.60-5.80) X10*6/uL Hgb 11.6 L (14.0-18.0) g/dl Hct 36.1 L (42.0-52.0) % MCV 98.4 H (80.0-98.0) fL MCH 31.6 (27.0-33.0) pg MCHC 32.1 (31.0-36.0) g/dl RDW 14.1 (11.0-16.0) % Plt Count 155 L (160-400) X10*3/uL MPV 9.5 (9.4-12.4) fL Immature Gran % (Auto) 0.5 H (0.0-0.4) % Neut % (Auto) 66.8 (45-73) % Lymph % (Auto) 16.7 L (20-40) % Hart % (Auto) 12.2 H (2-11) % Eos % (Auto) 3.5 (0-4) % Baso % (Auto) 0.3 (0-2) % Lymph # (Auto) 1.0 L (1.2-4.9) X10*3/uL Hart # (Auto) 0.8 (0.1-1.2) X10*3/uL Eos # (Auto) 0.2 (0.0-0.4) X10*3/uL Baso # (Auto) 0.0 (0.0-0.2) X10*3/uL Abs Immat Gran (auto) 0.03 (0.00-0.03) X10*3/uL Absolute Neuts (auto) 4.1 (2.0-8.3) x10*3/uL Absolute Nucleated RBC 0.000 (0.0-0.012) X10*3/uL Nucleated RBC % (auto) 0.0 (0.0-0.2) /100WBC VBG pH (7.32-7.43) VBG pCO2 mmHg VBG pO2 mmHg VBG HCO3 (22-26) mmol/L VBG O2 Saturation % VBG Base Excess mmol/L Sodium 137 (135-145) mmol/L Potassium 4.4 (3.3-5.1) mmol/L Chloride 106 (96-108) mmol/L Carbon Dioxide 25 (22-29) mmol/L Anion Gap 10 L (12-20) BUN 31 H (9-16) mg/dL Creatinine 1.98 H (0.5-1.4) mg/dL Estim Creat Clear Calc 28.3 Estimated GFR 33 Random Glucose 114 (60-115) mg/dL Lactic Acid 1.3 (0.5-2.0) mmol/L Calcium 8.4 (8.4-10.2) mg/dL Magnesium 2.1 (1.6-2.6) mg/dL Total Bilirubin 0.4 (0.0-1.0) mg/dL Direct Bilirubin < 0.1 (0.0-0.5) mg/dL AST 20 (5-37) U/L ALT < 6 (0-40) U/L Alkaline Phosphatase 82 (39-117) U/L Troponin I High Sens 20.6 (<3.5-35.0) ng/L C-Reactive Protein 2.62 H (< or = 0.50) mg/dL B-Natriuretic Peptide 155 H (<100) pg/mL Total Protein 6.7 (6.5-8.0) g/dL Albumin 3.9 (3.5-5.0) g/dL Lipase 28 (8-78) U/L Procalcitonin 0.15 ng/mL Urine Color Urine Appearance Urine pH (5.0-9.0) Ur Specific [place] (1.005-1.025) Urine Protein (Neg-Trace) mg/dL Urine Glucose (UA) (Negative) mg/dL Urine Ketones (Negative) mg/dL Urine Blood (Negative) Urine Nitrite (Negative) Ur Leukocyte Esterase (Negative) Urine RBC (0-2) /HPF Urine WBC (0-5) /HPF Ur Squamous Epith Cells (0-2) /HPF Urine Bacteria (None Seen) Hyaline Casts (0-2) /LPF Influenza Type A (PCR) NEGATIVE (Negative) Influenza Type B (PCR) NEGATIVE (Negative) RSV RNA Qual (PCR) NEGATIVE (Negative) SARS-CoV-2 RNA (RT-PCR) POSITIVE A (Negative) 04/29/25 04/29/25 Range/Units 10:17 14:00 WBC (4.8-10.8) X10*3/uL RBC (4.60-5.80) X10*6/uL Hgb (14.0-18.0) g/dl Hct (42.0-52.0) % MCV (80.0-98.0) fL MCH (27.0-33.0) pg MCHC (31.0-36.0) g/dl RDW (11.0-16.0) % Plt Count (160-400) X10*3/uL MPV (9.4-12.4) fL Immature Gran % (Auto) (0.0-0.4) % Neut % (Auto) (45-73) % Lymph % (Auto) (20-40) % Hart % (Auto) (2-11) % Eos % (Auto) (0-4) % Baso % (Auto) (0-2) % Lymph # (Auto) (1.2-4.9) X10*3/uL Hart # (Auto) (0.1-1.2) X10*3/uL Eos # (Auto) (0.0-0.4) X10*3/uL Baso # (Auto) (0.0-0.2) X10*3/uL Abs Immat Gran (auto) (0.00-0.03) X10*3/uL Absolute Neuts (auto) (2.0-8.3) x10*3/uL Absolute Nucleated RBC (0.0-0.012) X10*3/uL Nucleated RBC % (auto) (0.0-0.2) /100WBC VBG pH 7.33 (7.32-7.43) VBG pCO2 49 mmHg VBG pO2 69 mmHg VBG HCO3 26 (22-26) mmol/L VBG O2 Saturation 88.0 % VBG Base Excess 0.1 mmol/L Sodium (135-145) mmol/L Potassium (3.3-5.1) mmol/L Chloride (96-108) mmol/L Carbon Dioxide (22-29) mmol/L Anion Gap (12-20) BUN (9-16) mg/dL Creatinine (0.5-1.4) mg/dL Estim Creat Clear Calc Estimated GFR Random Glucose (60-115) mg/dL Lactic Acid (0.5-2.0) mmol/L Calcium (8.4-10.2) mg/dL Magnesium (1.6-2.6) mg/dL Total Bilirubin (0.0-1.0) mg/dL Direct Bilirubin (0.0-0.5) mg/dL AST (5-37) U/L ALT (0-40) U/L Alkaline Phosphatase (39-117) U/L Troponin I High Sens (<3.5-35.0) ng/L C-Reactive Protein (< or = 0.50) mg/dL B-Natriuretic Peptide (<100) pg/mL Total Protein (6.5-8.0) g/dL Albumin (3.5-5.0) g/dL Lipase (8-78) U/L Procalcitonin ng/mL Urine Color Yellow Urine Appearance Clear Urine pH 6.5 (5.0-9.0) Ur Specific [place] 1.010 (1.005-1.025) Urine Protein 30 (1+) H (Neg-Trace) mg/dL Urine Glucose (UA) Negative (Negative) mg/dL Urine Ketones Negative (Negative) mg/dL Urine Blood Negative (Negative) Urine Nitrite Negative (Negative) Ur Leukocyte Esterase Negative (Negative) Urine RBC 0-2 (0-2) /HPF Urine WBC 0-5 (0-5) /HPF Ur Squamous Epith Cells 0-2 (0-2) /HPF Urine Bacteria None Seen (None Seen) Hyaline Casts 0-2 (0-2) /LPF Influenza Type A (PCR) (Negative) Influenza Type B (PCR) (Negative) RSV RNA Qual (PCR) (Negative) SARS-CoV-2 RNA (RT-PCR) (Negative) Independent Interpretation I performed an independent interpretation of an: EKG and Plain X-Ray Interpretation: Rate: 65 Rhythm: NSR [place]: normal Normal P waves. Normal ARISTIDES. Normal QRS complex. ST T wave : normal no LEELA qTC: 411 prior studies: no acute ischemia The study has been interpreted contemporaneously by me. . Radiology Impression Discussion of test interpretation with radiology: I have reviewed the radiologist's reading. Independent Historian Clinical information obtained from an independent historian. History obtained from or confirmed by: EMS External Record Review External record reviewed: Inpatient record and Outpatient record Discharge Plan Discharge Clinical Impression: COVID-19 Patient Disposition: Xfer SNF Transfer Details: [facility] Instructions: COVID-19 (Coronavirus Disease 2019) (ED) Additional Instructions: You were found to be COVID-19 POSITIVE Your chest x-ray and oxygen levels were normal. Rest. Drink plenty of fluids. Take Tylenol and/or Motrin as needed for fevers and body aches. Follow up with your doctor Prescriptions: No Action gabapentin 300 mg capsule 400 mg PO BID carbidopa-levodopa 25-100 mg tablet 2 tab PO QID Eliquis 5 mg tablet 1 tab PO BID calcium carbonate [Tums 500] 500 mg calcium (1,250 mg) Tablet,Chewable 500 mg PO DAILY cholecalciferol (vitamin D3) [Vitamin D3] 25 mcg (1,000 unit) Tablet 25 mcg PO DAILY amlodipine 2.5 mg tablet 2.5 mg PO DAILY melatonin 3 mg tablet 3 mg PO BEDTIME amantadine HCl 100 mg capsule 100 mg PO DAILY sertraline 25 mg tablet 25 mg PO DAILY gabapentin 100 mg capsule 100 mg PO BEDTIME Referrals: Sharron Maher [place] [Outside] Print Language: Bhutanese
[2025-04-29 09:56] VITALS: BP 120/47; PULSE 72; RESP 17; TEMP 36.5; O2SAT 95
[2025-04-29 10:17] LABS: MANUAL DIFF FLAG NO
[2025-04-29 10:18] LABS: Venous Blood Gas Refer to POC result
[2025-04-29 10:19] LABS: Basophils Percent Auto 0.3 % (0-2); Eosinophils Absolute Auto 0.2 X10*3/uL (0.0-0.4); Eosinophils Percent Auto 3.5 % (0-4); Hematocrit 36.1 % (42.0-52.0); Hemoglobin 11.6 g/dl (14.0-18.0); Imm Gran Abs Auto 0.03 X10*3/uL (0.00-0.03); Imm Gran Pct Auto 0.5 % (0.0-0.4); Lymphocytes Percent Auto 16.7 % (20-40); Mean Corpuscular HGB Conc 32.1 g/dl (31.0-36.0); Mean Corpuscular Hemoglobin 31.6 pg (27.0-33.0); Mean Corpuscular Volume 98.4 fL (80.0-98.0); Mean Platelet Volume 9.5 fL (9.4-12.4); Monocytes Absolute Auto 0.8 X10*3/uL (0.1-1.2); Monocytes Percent Auto 12.2 % (2-11); Neutrophils Absolute Auto 4.1 x10*3/uL (2.0-8.3); Neutrophils Percent Auto 66.8 % (45-73); Platelet Count 155 X10*3/uL (160-400); Red Blood Count 3.67 X10*6/uL (4.60-5.80); Red Cell Distribution Width 14.1 % (11.0-16.0); White Blood Count 6.2 X10*3/uL (4.8-10.8)
[2025-04-29 10:21] LABS: VBG Base Excess 0.1 mmol/L; VBG HCO3 26 mmol/L (22-26); VBG pCO2 49 mmHg; VBG pH 7.33 (7.32-7.43); VBG pO2 69 mmHg
[2025-04-29 10:32] LABS: Anion Gap 10 (12-20)
[2025-04-29 10:35] LABS: Lactic Acid 1.3 mmol/L (0.5-2.0)
[2025-04-29 10:37] LABS: Alanine Aminotransferase < 6 U/L (0-40); Albumin Level 3.9 g/dL (3.5-5.0); Alkaline Phosphatase 82 U/L (39-117); Aspartate Amino Transferase 20 U/L (5-37); Bilirubin Direct < 0.1 mg/dL (0.0-0.5); Bilirubin Total 0.4 mg/dL (0.0-1.0); Blood Urea Nitrogen 31 mg/dL (9-16); C Reactive Protein 2.62 mg/dL (< or = 0.50); Calcium 8.4 mg/dL (8.4-10.2); Carbon Dioxide 25 mmol/L (22-29); Chloride 106 mmol/L (96-108); Creatinine Clr Calc Pharmacy 28.3; Estimated Glomerular Filt Rate 33; Glucose Random 114 mg/dL (60-115); Lipase 28 U/L (8-78); Magnesium 2.1 mg/dL (1.6-2.6); Potassium 4.4 mmol/L (3.3-5.1); Sodium 137 mmol/L (135-145); Total Protein 6.7 g/dL (6.5-8.0)
[2025-04-29 10:41] LABS: B Type Natriuretic Peptide 155 pg/mL (<100)
[2025-04-29 10:44] LABS: Troponin-I High Sensitivity 20.6 ng/L (<3.5-35.0)
[2025-04-29 11:03] LABS: Procalcitonin 0.15 ng/mL
[2025-04-29] MEDS: Lactated Ringers 1,000 ML 999 ML IV (11:03)
[2025-04-29 11:17] LABS: Influenza A PCR NEGATIVE (Negative); Influenza B PCR NEGATIVE (Negative); Resp Syncy Virus RNA Qual PCR NEGATIVE (Negative); SARS COV2 PCR INHOUSE POSITIVE (Negative)
--- NOTE | 2025-04-29 11:48 | PC.NURSE ---
Patient presents to ED c/o of weakness (unsteady) patient uses cane at baseline. Patient on 2l NC 95% Denies SOB. Denies pain, fever/chills. 20G in left forearm currently running 1L LR. Patient covid +, precautions in place. Patient NC removed 92% RA. Plan of care on going
[2025-04-29 12:23] VITALS: BP 147/61; PULSE 62; RESP 18; TEMP 36.9; O2SAT 95
--- NOTE | 2025-04-29 12:55 | PC.NURSE ---
PT at bedside for eval.
--- OUTSIDE RECORDS SUMMARY | 2025-04-29 12:56 | XMS_ITS | Clinical Summary ---
Author Organization [address] Address [address] [place] [address] Phone Care Team Providers Care Retail Visual Merchandiser Name Role Phone Jorge Henriquez MD Primary Care Provider [phone] Social History Tobacco Use Types Packs/Day Years Used Date Smoking Tobacco: Never Assessed Sex and Gender Information Value Date Recorded Sex Assigned at Not on file Legal Sex Male 9:04 PM EST Gender Identity Not on file Sexual Orientation Not on file Plan of Treatment Health Maintenance Due Date Last Done Comments Pneumococcal Vaccine: 50+ Years (2 of 2 - PPSV23) 01/19/2016 11/24/2015, 08/10/2011, 12/05/2005 RSV Immunization Adult Patients (1 - 1-dose 75+ series) 2019 Cholesterol Screening (Lipid Panel) 12/13/2023 Depression Screening 12/13/2023 Falls Risk Assessment 12/13/2023 Medicare Annual Wellness Visit 12/13/2023 Social Influencers of Health Screening 12/13/2023 COVID-19 Vaccine ( season) 2024 01/19/2022, 01/20/2021, 12/23/2020 Influenza Vaccine (Season Ended) 2025 09/06/2021, 08/05/2020, 08/18/2019, Additional history exists Hypertension/CHF/CAD Annual BMP Blood Test 09/29/2025 09/29/2024 DTaP,Tdap,and Td Vaccines (3 - Td or Tdap) 08/16/2030 08/16/2020, 01/07/2009 Zoster Vaccines Completed 07/24/2018, 0304/2018, 03/04/2009 HIB Vaccines Aged Out No longer eligi ble based on patient's age to complete this topic HPV Vaccines Aged Out No longer eligi ble based on patient's age to complete this topic Hepatitis A Vaccines Aged Out No long er eligible based on patient's age to complete this topic Hepatitis B Vaccines Aged Out No long er eligible based on patient's age to complete this topic IPV Vaccines Aged Out No longer eligi ble based on patient's age to complete this topic MMR Vaccines Aged Out No longer eligi ble based on patient's age to complete this topic Meningococcal ACWY Vaccine Aged Out N o longer eligible based on patient's age to complete this topic Meningococcal B Vaccine Aged Out No l onger eligible based on patient's age to complete this topic RSV Immunization Patients Under 20 months Aged Out No longer eligible based on patient's age to complete this topic Varicella Vaccines Aged Out No longer eligible based on patient's age to complete this topic Procedures Procedure Name Priority Date/Time Associated Diagnosis Comments COMPREHENSIVE METABOLIC PANEL Routine 09/29/2024 7:55 AM EST Vitamin D deficiency, unspecified Type 2 diabetes mellitus without complications (CMS/HCC) Hyperlipidemia, unspecified Essential (primary) hypertension Chronic kidney disease, unspecified from Last 3 Months or Most Recently Relevant to Health Maintenance Results * (ABNORMAL) Comprehensive metabolic panel (09/29/2024 7:55 AM EST) Sodium 142 133 - 145 mmol/L LAB CHEMISTRY METHOD 09/29/2024 10:07 AM [facility] Potassium 5.6(H) 3.5 - 5.5 mmol/L LAB CHEMISTRY METHOD 09/29/2024 10:07 AM [facility] Chloride 113(H) 96 - 110 mmol/L LAB CHEMISTRY METHOD 09/29/2024 10:07 AM [facility] CO2 23 21 - 32 mmol/L LAB CHEMISTRY METHOD 09/29/2024 10:07 AM [facility] Anion Gap 6 3 - 11 LAB CHEMISTRY METHOD 09/29/2024 10:07 AM [facility] Glucose 91 70 - 100 mg/dL LAB CHEMISTRY METHOD 09/29/2024 10:07 AM [facility] BUN 33(H) 5 - 25 mg/dL LAB CHEMISTRY METHOD 09/29/2024 10:07 AM [facility] Creatinine 1.78(H) 0.70 - 1.30 mg/dL LAB CHEMISTRY METHOD 09/29/2024 10:07 AM [facility] eGFR 38(L) >=60 mL/min/1. 73m2 LAB CHEMISTRY METHOD 09/29/2024 10:07 AM [facility] Comment:Calculation based on the??Chronic Kidney Disease Epidemiology Collaboration (CKD-EPI) equation refit??without adjustment for race. BUN/Creatinine Ratio 18.5 LAB CHEMISTRY METHOD 09/29/2024 10:07 AM [facility] Calcium 7.6(L) 8.5 - 10.5 mg/dL LAB CHEMISTRY METHOD 09/29/2024 10:07 AM [facility] AST (SGOT) 14 10 - 42 unit/L LAB CHEMISTRY METHOD 09/29/2024 10:07 AM [facility] ALT (SGPT) 7(L) 10 - 60 unit/L LAB CHEMISTRY METHOD 09/29/2024 10:07 AM [facility] Alkaline Phosphatase 84 42 - 121 unit/L LAB CHEMISTRY METHOD 09/29/2024 10:07 AM [facility] Total Protein 6.8 6.0 - 8.0 g/dL LAB CHEMISTRY METHOD 09/29/2024 10:07 AM [facility] Albumin 3.5 3.2 - 5.0 g/dL LAB CHEMISTRY METHOD 09/29/2024 10:07 AM [facility] Total Bilirubin 0.5 0.0 - 1.4 mg/dL LAB CHEMISTRY METHOD 09/29/2024 10:07 AM [facility] Blood Venous blood specimen / Unknown Venipuncture / Unknown 09/29/2024 7:55 AM EST 09/29/2024 8:42 AM EST us Jorge Henriquez MD LAB BLOOD ORDERABLES Final Result [facility] [address] [place] [address], from Last 3 Months or Most Recently Relevant to Health Maintenance Insurance MEDICAID - [place] MEDICARE Care Teams Retail Visual Merchandiser Relationship Specialty Start Date End Date Jorge Henriquez MD [address] [place] [address] PCP - General Internal Medicine 10/01/24
[2025-04-29 13:00] VITALS: BP 147/61; PULSE 62; O2SAT 95
[2025-04-29 14:17] LABS: Appearance Urine Clear; Color Urine Yellow; Glucose Urine UA Negative (Negative); Leukocyte Esterase Urine Negative (Negative); Nitrite Urine Negative (Negative); PH 6.5 (5.0-9.0); UMIC TRIGGER UACC YES; Urine Blood Negative (Negative); Urine Ketones Negative (Negative); Urine Protein 30 (1+) mg/dL (Neg-Trace)
[2025-04-29 14:20] VITALS: BP 141/65; PULSE 64; RESP 18; TEMP 36.9; O2SAT 96
[2025-04-29 14:20] LABS: Bacteria Urine None Seen (None Seen); Hyaline Casts Urine 0-2 /LPF (0-2); RBC Urine 0-2 /HPF (0-2); Squamous Epithelial Cell Urine 0-2 /HPF (0-2); WBC Urine 0-5 /HPF (0-5)
--- NOTE | 2025-04-29 15:13 | MHC.CM.ED ---
Received case management consult from Dr Arreaga. Patient resides at [facility]. Came to the ER due to weakness. Found to be positive for Covid. Physical therapy eval completed. Short term rehab is recommended. Anticipate patient will be difficult to place d/t being Covid positive. Referral was broadcasted in [facility]. [facility] and [facility] are able to offer a bed. Met with patient in regards to discharge planning. Patient verifies residing at [facility]. PCP verified as Reece Smith at the [facility]. Copy of HCP obtained from [facility]. [facility] is patient's 1st choice. MDS and Level 1 completed. Faxed to [facility] and provided to [facility]. Dr Arreaga aware patient will be with us overnight and has been asked to order home meds. Continue to monitor for d/c needs.
--- NOTE | 2025-04-29 15:18 | PC.NURSE ---
completed pt med rec with list from Gustavo Garner and pts external med history. pt unsure of what meds he takes.
--- NOTE | 2025-04-29 16:13 | PC.NURSE ---
Addendum entered by Janet Grajeda RN 04/29/25 16:20: Patient is a 80 yo male with PMH of parkinsons, afib on eliquis, HTN, HLD here with c/o one day of bilateral leg weakness, cough, fatigue, feels slightly confused. He has had a dry cough. He states he tries to walk with his cane and his legs feel too weak and he feels shaky. Alert and oriented. Very shaky secondary to his parkinson's. Lungs clear but diminished. Respirations even and non-labored. Abdomen flat soft, non-tender with positive bowel sounds. Positive pedal pulses with no edema. Patient needs STR but found to be positive for COVID/ Original Note: Medical History Coronary artery disease HTN (hypertension) Surgical History Hx of CABG
[2025-04-29 22:00] VITALS: BP 148/80; PULSE 77; RESP 22; TEMP 37.7; O2SAT 95
--- NOTE | 2025-04-30 00:29 | PC.NURSE ---
Assumed care at 1900. Patient denies pain , has urinary frequency. Sleeping at present time.. Safety precautions in place , call [facility] within reach.
[2025-04-30 06:15] VITALS: BP 173/78; PULSE 63; RESP 18; TEMP 37.3; O2SAT 96
--- NOTE | 2025-04-30 09:00 | PC.NURSE ---
Morning medication administration delayed d/t medications not loaded in pyxis. Pharmacy notified- will bring up medications.
--- NOTE | 2025-04-30 10:07 | PHA.MEDREC ---
Pharmacy Consult ? Medication Reconciliation Pharmacy has reviewed the medication reconciliation done by nursing.
[2025-04-30 10:55] VITALS: BP 140/68
[2025-04-30] MEDS: Sertraline HCL 25 MG TABLET PO (10:55)
[2025-04-30] MEDS: amLODIPine Besylate 2.5 MG TABLET PO (10:55)
[2025-04-30] MEDS: Cholecalciferol (Vitamin D3) 25 MCG TABLET PO (10:55)
[2025-04-30] MEDS: Calcium Carbonate 750 MG TAB.CHEW PO (10:55)
[2025-04-30] MEDS: Gabapentin 400 MG CAPSULE PO (10:55)
[2025-04-30] MEDS: Apixaban 5 MG TABLET PO (10:55)
[2025-04-30] MEDS: Carbidopa/Levodopa 25/100 TABLET 2 TAB PO (11:50)
[2025-04-30] MEDS: amantadine HCL 100 MG CAPSULE PO (11:51)
--- NOTE | 2025-04-30 12:55 | MHC.CM.ED ---
Patient currently in ER overflow. Patient can leave for [facility] at 230pm. Ana JOSEPH booked. Med [facility] with chart. Patient, Betty Choudhury RN and Breana SOLIZ aware. Continue to monitor for d/c needs.
[2025-04-30 14:17] VITALS: BP 133/64; PULSE 61; RESP 16; TEMP 36.7; O2SAT 97
[2025-04-30 15:57] VITALS: BP 133/64; PULSE 61; RESP 16; TEMP 36.7; O2SAT 97
== END 2025-04-30 15:58 | disposition skilled nursing facility (03) ==
PROVIDERS: Emergency Provider Emergency Medicine; PCP Internal Medicine
DX: U07.1 COVID-19 (principal); M79.604 Pain in right leg; M79.605 Pain in left leg; R06.02 Shortness of breath; R26.81 Unsteadiness on feet; R05.9 Cough, unspecified; R11.0 Nausea; Z79.899 Other long term (current) drug therapy; Z79.01 Long term (current) use of anticoagulants
CPT/HCPCS: 0241U; 71045; 80048; 80076; 81001; 82803; 83605; 83690; 83735; 83880; 84145; 84484; 85025; 86140; 87040; 93005; 96360; 96361; 97162; 99285; J7120

== ENCOUNTER → 2025-04-29 09:48 | Outpatient (BNV) | payer OTHER, SELFPAY | PROVIDERS: Emergency Provider Emergency Medicine; Visit Provider Internal Medicine Cardiovascular Disease | DX: R53.1 Weakness (principal) | CPT/HCPCS: 93010 ==

== ENCOUNTER → 2025-04-29 09:48 | Outpatient (BNV) | payer OTHER, SELFPAY | PROVIDERS: Emergency Provider Emergency Medicine; Visit Provider Radiology Diagnostic Radiology | DX: M96.622 Fracture of humerus following insertion of orthopedic implant, joint prosthesis, or bone plate, left arm (principal) | CPT/HCPCS: 71045 ==